=== PATIENT | male | born 1990 | race Caucasian/White ===

== ENCOUNTER 2019-10-09 02:00 | Inpatient (IN) | payer MEDICAID, SELFPAY ==
[~2019-10-09] VITALS: Ht 175.3 cm; Wt 62.8 kg
[2019-10-09] VITALS (60 sets, daily range): BP systolic 88–127; BP diastolic 52–80
[2019-10-09] MEDS ORDERED: SODIUM CHLORIDE 0.9% 1,000 ML IV ONE ×2 (02:13→05:15)
[2019-10-09] MEDS ORDERED: PHENYLEPHRINE 20 MG in DEXT 5% WATER 498 ML IV PRN ×2 (02:30→02:45)
[2019-10-09 02:37] LABS: HEMATOCRIT. 40.5 % (42.0-52.0); HEMOGLOBIN. 13.5 g/dL (14.0-18.0); MEAN CORPUSCULAR HEMOGLOBIN 30.4 pg (28.0-32.0); MEAN CORPUSCULAR VOLUME 91.1 fL (80.0-94.0); MEAN PLATELET VOLUME 9.4 fl (7.4-10.4); PLATELET 330 x1000/uL (130-400); RED BLOOD CELL COUNT 4.45 mill/uL (4.7-6.1); RED CELL DISTRIBUTION WIDTH 13.7 % (11.6-14.6)
[2019-10-09 02:45] LABS: CHLORIDE 106 mEq/L (98-107)
[2019-10-09 02:50] LABS: ETHANOL BLOOD 30 mg/dL
[2019-10-09 02:54] LABS: CREATINE KINASE 357 IU/L (39-308)
[2019-10-09] MEDS ORDERED: MIDAZOLAM HCL 50 MG in DEXTROSE 5% WATER 40 ML IV ONE (03:00)
[2019-10-09] MEDS ORDERED: SODIUM CHLORIDE 0.9% 1000ML BAG (SEPSIS BOLUS) IV ONE (03:15)
[2019-10-09] MEDS ORDERED: ACETAMINOPHEN 650MG SUPP PR ONE (03:15)
[2019-10-09] MEDS ORDERED: MIDAZOLAM HCL 100 MG in DEXT 5% WATER 80 ML IV PRN ×2 (03:30→09:00)
[2019-10-09] MEDS ORDERED: ACYCLOVIR INJ 500 MG in DEXT 5% WATER 100 ML IV SCH (05:00)
[2019-10-09] MEDS ORDERED: CEFTRIAXONE 2 G PREMIX 50 ML IV ONE (05:00)
[2019-10-09] MEDS ORDERED: VANCOMYCIN 1 G PREMIX 200 ML IV SCH (05:00)
[2019-10-09] MEDS ORDERED: MIDAZOLAM HCL 2 MG/2 ML VIAL IV ONE (05:15)
[2019-10-09] MEDS ORDERED: KETOROLAC 15MG/ML VIAL IV ONE (05:15)
[2019-10-09] MEDS ORDERED: PROPOFOL 10MG/ML 100ML 100 ML IV SCH (05:30)
[2019-10-09 05:39] LABS: ATYPICAL LYMPHOCYTES 1; PLATELET ESTIMATE NORMAL
[2019-10-09] MEDS ORDERED: LEVETIRACETAM 500MG PREMIX 100 ML IV ONE ×2 (05:45)
[2019-10-09 06:30] LABS: GLUCOSE CSF 60 mg/dL (41-75)
[2019-10-09] MEDS ORDERED: PHENYLEPHRINE 80 MG in DEXT 5% WATER 492 ML IV PRN ×2 (09:00→09:15)
[2019-10-09] MEDS ORDERED: ONDANSETRON HCL 4MG/2ML INJ IV PRN (09:15)
[2019-10-09] MEDS ORDERED: PIPERACILLIN/TAZ 3.375G PREMIX 50 ML IV SCH (09:15)
[2019-10-09] MEDS: MIDAZOLAM HCL 100 MG in DEXT 5% WATER 80 ML IV PRN ×2 (09:24→18:08)
[2019-10-09] MEDS: PROPOFOL 10MG/ML 100ML 100 ML IV PRN ×2 (09:28→14:01)
[2019-10-09 09:34] LABS: PHOSPHORUS 3.1 mg/dL (2.5-4.9)
[2019-10-09] MEDS ORDERED: ENOXAPARIN 40MG/0.4ML SYR SUBCUT SCH (10:00)
[2019-10-09] MEDS ORDERED: SODIUM CHLORIDE 0.9% 1,000 ML IV SCH (10:00)
[2019-10-09] MEDS ORDERED: LORAZEPAM 2MG/ML CPJ IV PRN (10:15)
[2019-10-09 10:42] LABS: BG BASE EXCESS -9.7 mmol/L (-2.0-2.0); BG CARBOXYHEMOGLOBIN 0.3 % (0.5-1.5); BG DEOXYHEMOGLOBIN 0.8 % (0.0-5.0); BG HCO3 ACT 13.8 mmol/L (22.0-26.0); BG METHEMOGLOBIN 0.3 % (0.0-1.5); BG OXYGEN SATURATION 99.2 % (92.0-98.5); BG OXYHEMOGLOBIN 98.6 % (94.0-97.0); BG PCO2 24.8 mmHg (35.0-45.0); BG PH 7.363 (7.350-7.450); BG PO2 164.6 mmHg (75.0-100.0); BG SAMPLE SITE RIGHT BRACHIAL; BG TIDAL VOLUME(mL) 500 mL; BG TOTAL HEMOGLOBIN 14.2 g/dL (12.0-18.0); BG VENT MODE VENT - A/C; BG VENT RATE 16 set
[2019-10-09] MEDS: ACETAMINOPHEN 325MG TABLET PO PRN (12:47)
[2019-10-09] MEDS: LEVETIRACETAM 500MG PREMIX 100 ML IV SCH ×2 (12:49→22:15)
[2019-10-09] MEDS: PIPERACILLIN/TAZOBACTAM 3.375 G in DEXT 5% WATER 100 ML IV SCH ×2 (12:49→17:20)
[2019-10-09] MEDS ORDERED: MVI, ADULT NO.1 10 ML, FOLIC ACID 1 MG, THIAMINE HCL 100 MG in SODIUM CHLORIDE 0.9% 1,0... IV SCH ×4 (13:15)
[2019-10-09 13:39] LABS: CLARITY URINE TURBID (CLEAR); KETONES URINE 1+ (NEGATIVE); LEUKOCYTE ESTERASE URINE 2+ (NEGATIVE); NITRITE URINE POSITIVE (NEGATIVE); OCCULT BLOOD URINE 3+ (NEGATIVE); PH URINE 5.5 (4.5-8.0); PROTEIN URINE 3+ (NEGATIVE); SPECIFIC GRAVITY URINE 1.023 (1.005-1.030)
[2019-10-09 13:42] LABS: COLOR URINE BROWN (YELLOW)
[2019-10-09] MEDS ORDERED: PANTOPRAZOLE SODIUM 40 MG/VIAL IV SCH (14:00)
[2019-10-09 14:02] LABS: *BARBITURATES SCREEN URINE NEGATIVE (NEGATIVE); *BENZODIAZEPINES SCREEN URINE PRESUMTIVE POSITIVE (NEGATIVE); *COCAINE SCREEN URINE NEGATIVE (NEGATIVE); METHADONE URINE SCREEN NEGATIVE (NEGATIVE)
[2019-10-09 14:03] LABS: *AMPHETAMINES SCREEN URINE PRESUMTIVE POSITIVE (NEGATIVE); CANNABINOID URINE SCREEN NEGATIVE (NEGATIVE); OPIATES URINE SCREEN NEGATIVE (NEGATIVE); PHENCYCLIDINE URINE SCREEN NEGATIVE (NEGATIVE)
[2019-10-09] MEDS: FENTANYL CITRATE/PF 1,000 MCG in SODIUM CHLORIDE 0.9% 80 ML IV PRN (14:03)
[2019-10-09] MEDS: LACTULOSE 20G/30ML UDC PO SCH ×2 (14:43→22:16)
[2019-10-09] MEDS: FOLIC ACID 1 MG, THIAMINE HCL 100 MG, MVI, ADULT NO.1 10 ML in DEXTROSE 5% WATER 1,000 ML IV SCH ×4 (15:49)
[2019-10-09 16:47] LABS: INR 1.8; PROTHROMBIN TIME 18.2 sec (9.6-11.0)
[2019-10-09] MEDS: PANTOPRAZOLE SODIUM 40 MG/VIAL IV SCH (17:20)
[2019-10-09 17:22] LABS: HEPATITIS B SURFACE ANTIGEN NEGATIVE
[2019-10-09 17:36] LABS: CREATINE KINASE MB FRACTION 339.6 ng/mL (0.5-3.6)
[2019-10-09 17:52] LABS: HEPATITIS A AB IGM NEGATIVE (NEGATIVE)
[2019-10-09] MEDS ORDERED: VANCOMYCIN 1500MG in DEXTROSE 5% WATER 250ML IV SCH (18:00)
[2019-10-09] MEDS: PHENYLEPHRINE 80 MG in DEXT 5% WATER 492 ML IV PRN (23:07)
[2019-10-09 23:39] LABS: CREATINE KINASE MB FRACTION 275.9 ng/mL (0.5-3.6)
[2019-10-10] VITALS (94 sets, daily range): BP systolic 87–110; BP diastolic 45–63
[2019-10-10] MEDS: PIPERACILLIN/TAZOBACTAM 3.375 G in DEXT 5% WATER 100 ML IV SCH ×2 (00:52→06:19)
[2019-10-10] MEDS: FENTANYL CITRATE/PF 1,000 MCG in SODIUM CHLORIDE 0.9% 80 ML IV PRN (05:37)
[2019-10-10 05:46] LABS: HEMATOCRIT. 41.2 % (42.0-52.0); HEMOGLOBIN. 13.3 g/dL (14.0-18.0); MEAN CORPUSCULAR HEMOGLOBIN 30.2 pg (28.0-32.0); MEAN CORPUSCULAR VOLUME 93.5 fL (80.0-94.0); MEAN PLATELET VOLUME 10.8 fl (7.4-10.4); PLATELET 82 x1000/uL (130-400); RED CELL DISTRIBUTION WIDTH 14.6 % (11.6-14.6)
[2019-10-10 06:03] LABS: CHLORIDE 108 mEq/L (98-107)
[2019-10-10 06:11] LABS: HDL CHOLESTEROL 62 mg/dL (40-59)
[2019-10-10 06:13] LABS: LDL CHOLESTEROL 97 mg/dL (5-100)
[2019-10-10] MEDS: LACTULOSE 20G/30ML UDC PO SCH ×3 (06:19→21:36)
[2019-10-10 08:00] LABS: PLATELET ESTIMATE SLIGHTLY DECREASED
[2019-10-10 08:06] LABS: BG BASE EXCESS 2.4 mmol/L (-2.0-2.0); BG CARBOXYHEMOGLOBIN 0.3 % (0.5-1.5); BG DEOXYHEMOGLOBIN 4.2 % (0.0-5.0); BG FRACTION INSPIRED OXYGEN 50; BG HCO3 ACT 25.2 mmol/L (22.0-26.0); BG METHEMOGLOBIN 0.9 % (0.0-1.5); BG OXYGEN SATURATION 95.7 % (92.0-98.5); BG OXYHEMOGLOBIN 94.6 % (94.0-97.0); BG PCO2 33.5 mmHg (35.0-45.0); BG PH 7.494 (7.350-7.450); BG PO2 77.9 mmHg (75.0-100.0); BG SAMPLE SITE RIGHT BRACHIAL; BG TIDAL VOLUME(mL) 500 mL; BG TOTAL HEMOGLOBIN 13.3 g/dL (12.0-18.0); BG VENT MODE VENT - A/C; BG VENT RATE 16 set
[2019-10-10] MEDS: LEVETIRACETAM 500MG PREMIX 100 ML IV SCH ×2 (09:34→20:41)
[2019-10-10] MEDS: RIFAXIMIN 550 MG TABLET PO SCH ×2 (09:35→20:50)
[2019-10-10] MEDS: PANTOPRAZOLE SODIUM 40 MG/VIAL IV SCH ×2 (09:35→16:45)
[2019-10-10] MEDS: ENOXAPARIN 30MG/0.3ML SYR SUBCUT SCH (11:13)
[2019-10-10] MEDS: CEFEPIME 1,000 MG in DEXTROSE 5% WATER 50 ML IV SCH ×2 (11:26→22:38)
[2019-10-10] MEDS: PHENYLEPHRINE 80 MG in DEXT 5% WATER 492 ML IV PRN ×2 (11:26→17:43)
[2019-10-10] MEDS ORDERED: PIPERACILLIN/TAZOBACTAM 2.25 G in DEXTROSE 5% WATER 50 ML IV SCH (14:00)
[2019-10-10] MEDS: FOLIC ACID 1 MG, THIAMINE HCL 100 MG, MVI, ADULT NO.1 10 ML in DEXTROSE 5% WATER 1,000 ML IV SCH ×4 (15:00)
[2019-10-10] MEDS: METRONIDAZOLE 500 MG PREMIX 100 ML IV SCH ×2 (16:44→21:36)
[2019-10-11] VITALS (81 sets, daily range): BP systolic 84–140; BP diastolic 38–84
[2019-10-11] MEDS: PHENYLEPHRINE 80 MG in DEXT 5% WATER 492 ML IV PRN ×3 (00:26→17:29)
[2019-10-11 04:07] LABS: HIV SCREEN 4G Non Reactive (Non Reactive)
[2019-10-11] MEDS: METRONIDAZOLE 500 MG PREMIX 100 ML IV SCH ×3 (05:14→21:16)
[2019-10-11] MEDS: LACTULOSE 20G/30ML UDC PO SCH ×3 (05:14→21:15)
[2019-10-11 05:48] LABS: HEMOGLOBIN. 13.2 g/dL (14.0-18.0); MEAN CORPUSCULAR HEMOGLOBIN 30.1 pg (28.0-32.0); MEAN CORPUSCULAR VOLUME 93.7 fL (80.0-94.0); MEAN PLATELET VOLUME 11.6 fl (7.4-10.4); RED BLOOD CELL COUNT 4.38 mill/uL (4.7-6.1); RED CELL DISTRIBUTION WIDTH 14.8 % (11.6-14.6)
[2019-10-11 06:17] LABS: PLATELET 49 x1000/uL (130-400)
[2019-10-11 08:12] LABS: BG BASE EXCESS -15.2 mmol/L (-2.0-2.0); BG CARBOXYHEMOGLOBIN 0.3 % (0.5-1.5); BG DEOXYHEMOGLOBIN 2.6 % (0.0-5.0); BG FRACTION INSPIRED OXYGEN 50; BG HCO3 ACT 12.3 mmol/L (22.0-26.0); BG METHEMOGLOBIN 0.3 % (0.0-1.5); BG OXYGEN SATURATION 97.4 % (92.0-98.5); BG OXYHEMOGLOBIN 96.8 % (94.0-97.0); BG PCO2 34.6 mmHg (35.0-45.0); BG PH 7.168 (7.350-7.450); BG PO2 103.8 mmHg (75.0-100.0); BG SAMPLE SITE RIGHT RADIAL; BG TIDAL VOLUME(mL) 500 mL; BG TOTAL HEMOGLOBIN 13.1 g/dL (12.0-18.0); BG VENT MODE VENT - A/C; BG VENT RATE 12 set
[2019-10-11 08:33] LABS: PLATELET ESTIMATE MARKEDLY DECREASED
[2019-10-11] MEDS: FOLIC ACID 1 MG, THIAMINE HCL 100 MG, MVI, ADULT NO.1 10 ML in DEXTROSE 5% WATER 1,000 ML IV SCH ×4 (09:02)
[2019-10-11] MEDS: ENOXAPARIN 30MG/0.3ML SYR SUBCUT SCH (09:46)
[2019-10-11 10:28] LABS: PROTHROMBIN TIME 29.8 sec (9.6-11.0)
[2019-10-11] MEDS ORDERED: PHYTONADIONE 10MG/ML AMP SUBCUT NR (12:00)
[2019-10-11] MEDS: LEVETIRACETAM 500MG PREMIX 100 ML IV SCH ×2 (13:08→21:16)
[2019-10-11] MEDS: CEFEPIME 1,000 MG in DEXTROSE 5% WATER 50 ML IV SCH ×2 (13:08→23:33)
[2019-10-11] MEDS: RIFAXIMIN 550 MG TABLET PO SCH ×2 (13:09→21:15)
[2019-10-11] MEDS: PANTOPRAZOLE SODIUM 40 MG/VIAL IV SCH ×2 (13:09→16:27)
[2019-10-11] MEDS: ALBUMIN HUMAN 25GM/100ML (25%) IV SCH ×2 (13:56→21:15)
[2019-10-11] MEDS ORDERED: VANCOMYCIN 1 G PREMIX 200 ML IV SCH (17:00)
[2019-10-11] MEDS: FENTANYL CITRATE/PF 1,000 MCG in SODIUM CHLORIDE 0.9% 80 ML IV PRN (23:33)
[2019-10-12] VITALS (74 sets, daily range): BP systolic 105–146; BP diastolic 50–74
[2019-10-12] MEDS: FOLIC ACID 1 MG, THIAMINE HCL 100 MG, MVI, ADULT NO.1 10 ML in DEXTROSE 5% WATER 1,000 ML IV SCH ×4 (02:00)
[2019-10-12 05:34] LABS: HEMATOCRIT. 31.3 % (42.0-52.0); HEMOGLOBIN. 10.5 g/dL (14.0-18.0); MEAN CORPUSCULAR HEMOGLOBIN 30.8 pg (28.0-32.0); MEAN CORPUSCULAR VOLUME 91.6 fL (80.0-94.0); MEAN PLATELET VOLUME 10.4 fl (7.4-10.4); RED BLOOD CELL COUNT 3.42 mill/uL (4.7-6.1); RED CELL DISTRIBUTION WIDTH 14.4 % (11.6-14.6)
[2019-10-12 05:41] LABS: INR 2.3; PARTIAL THROMBOPLASTIN TIME 50.9 sec (23.4-31.0); PROTHROMBIN TIME 23.4 sec (9.6-11.0)
[2019-10-12] MEDS: LACTULOSE 20G/30ML UDC PO SCH ×3 (05:55→22:58)
[2019-10-12] MEDS: METRONIDAZOLE 500 MG PREMIX 100 ML IV SCH ×3 (05:55→21:10)
[2019-10-12 06:17] LABS: PLATELET 46 x1000/uL (130-400)
[2019-10-12 08:48] LABS: BG CARBOXYHEMOGLOBIN 0.2 % (0.5-1.5); BG DEOXYHEMOGLOBIN 1.9 % (0.0-5.0); BG FRACTION INSPIRED OXYGEN 50; BG HCO3 ACT 17.8 mmol/L (22.0-26.0); BG METHEMOGLOBIN 0.4 % (0.0-1.5); BG OXYGEN SATURATION 98.1 % (92.0-98.5); BG OXYHEMOGLOBIN 97.5 % (94.0-97.0); BG PCO2 37.5 mmHg (35.0-45.0); BG PH 7.295 (7.350-7.450); BG PO2 122.3 mmHg (75.0-100.0); BG SAMPLE SITE RIGHT BRACHIAL; BG TIDAL VOLUME(mL) 500 mL; BG TOTAL HEMOGLOBIN 8.5 g/dL (12.0-18.0); BG VENT MODE VENT - A/C; BG VENT RATE 18 set
[2019-10-12] MEDS: RIFAXIMIN 550 MG TABLET PO SCH ×2 (10:06→21:10)
[2019-10-12] MEDS: PANTOPRAZOLE SODIUM 40 MG/VIAL IV SCH ×2 (10:06→16:16)
[2019-10-12 10:07] LABS: PLATELET ESTIMATE DECREASED
[2019-10-12] MEDS: LEVETIRACETAM 500MG PREMIX 100 ML IV SCH ×2 (10:07→21:10)
[2019-10-12] MEDS: CEFEPIME 1,000 MG in DEXTROSE 5% WATER 50 ML IV SCH (11:40)
[2019-10-12] MEDS: PHYTONADIONE 10MG/ML AMP SUBCUT SCH (18:00)
[2019-10-13] VITALS (52 sets, daily range): BP systolic 125–171; BP diastolic 61–95
[2019-10-13] MEDS: FOLIC ACID 1 MG, THIAMINE HCL 100 MG, MVI, ADULT NO.1 10 ML in DEXTROSE 5% WATER 1,000 ML IV SCH ×4 (02:38)
[2019-10-13] MEDS: METRONIDAZOLE 500 MG PREMIX 100 ML IV SCH ×3 (05:16→21:23)
[2019-10-13] MEDS: LACTULOSE 20G/30ML UDC PO SCH ×3 (05:16→21:23)
[2019-10-13] MEDS: FENTANYL CITRATE/PF 1,000 MCG in SODIUM CHLORIDE 0.9% 80 ML IV PRN (06:08)
[2019-10-13 08:01] LABS: HEMATOCRIT. 34.2 % (42.0-52.0); HEMOGLOBIN. 11.5 g/dL (14.0-18.0); MEAN CORPUSCULAR HEMOGLOBIN 30.1 pg (28.0-32.0); MEAN CORPUSCULAR VOLUME 89.7 fL (80.0-94.0); MEAN PLATELET VOLUME 9.4 fl (7.4-10.4); PLATELET 91 x1000/uL (130-400); RED BLOOD CELL COUNT 3.82 mill/uL (4.7-6.1); RED CELL DISTRIBUTION WIDTH 14.4 % (11.6-14.6)
[2019-10-13 08:02] LABS: CHLORIDE 117 mEq/L (98-107)
[2019-10-13 08:04] LABS: INR 1.4; PROTHROMBIN TIME 14.8 sec (9.6-11.0)
[2019-10-13 08:22] LABS: CREATINE KINASE 3474 IU/L (39-308)
[2019-10-13 08:58] LABS: PLATELET ESTIMATE DECREASED
[2019-10-13] MEDS: PHYTONADIONE 10MG/ML AMP SUBCUT SCH (09:02)
[2019-10-13] MEDS: RIFAXIMIN 550 MG TABLET PO SCH ×2 (09:02→21:23)
[2019-10-13] MEDS: PANTOPRAZOLE SODIUM 40 MG/VIAL IV SCH ×2 (09:02→17:08)
[2019-10-13] MEDS: CEFEPIME 1,000 MG in DEXTROSE 5% WATER 50 ML IV SCH (09:02)
[2019-10-13 09:11] LABS: BG BASE EXCESS -3.5 mmol/L (-2.0-2.0); BG CARBOXYHEMOGLOBIN 0.8 % (0.5-1.5); BG DEOXYHEMOGLOBIN 1.5 % (0.0-5.0); BG FRACTION INSPIRED OXYGEN 40; BG HCO3 ACT 21.4 mmol/L (22.0-26.0); BG METHEMOGLOBIN 0.8 % (0.0-1.5); BG OXYGEN SATURATION 98.5 % (92.0-98.5); BG OXYHEMOGLOBIN 96.9 % (94.0-97.0); BG PCO2 37.8 mmHg (35.0-45.0); BG PH 7.371 (7.350-7.450); BG PO2 147.5 mmHg (75.0-100.0); BG SAMPLE SITE LEFT RADIAL; BG TIDAL VOLUME(mL) 500 mL; BG TOTAL HEMOGLOBIN 6.5 g/dL (12.0-18.0); BG VENT MODE VENT - A/C; BG VENT RATE 20 set
[2019-10-13] MEDS: LEVETIRACETAM 500MG PREMIX 100 ML IV SCH ×2 (10:29→21:23)
[2019-10-13] MEDS ORDERED: VANCOMYCIN 750 MG PREMIX 150 ML IV SCH (12:00)
[2019-10-13] MEDS: ACETAMINOPHEN 325MG TABLET PO PRN (14:30)
[2019-10-13] MEDS: CLONIDINE 0.1MG TABLET PO PRN (14:32)
[2019-10-13] MEDS ORDERED: HYDROMORPHONE HCL/PF 2MG/ML CPJ IV PRN (15:15)
[2019-10-13] MEDS ORDERED: METOPROLOL TARTRATE 5MG/5ML VIAL IV NR (15:45)
[2019-10-13] MEDS: MORPHINE SULFATE 2 MG/ML CPJ (NOT FOR IM USE) IV PRN (15:54)
[2019-10-13 17:10] LABS: *HSV 1 DNA PCR Negative (Negative); *HSV 2 DNA PCR Negative (Negative)
[2019-10-14] VITALS (47 sets, daily range): BP systolic 133–192; BP diastolic 72–110
[2019-10-14] MEDS: LACTULOSE 20G/30ML UDC PO SCH ×3 (05:44→22:50)
[2019-10-14] MEDS: METRONIDAZOLE 500 MG PREMIX 100 ML IV SCH ×3 (05:45→21:57)
[2019-10-14 06:41] LABS: HEMOGLOBIN. 12.3 g/dL (14.0-18.0); MEAN CORPUSCULAR HEMOGLOBIN 29.8 pg (28.0-32.0); MEAN CORPUSCULAR VOLUME 89.7 fL (80.0-94.0); MEAN PLATELET VOLUME 9.1 fl (7.4-10.4); PLATELET 107 x1000/uL (130-400); RED BLOOD CELL COUNT 4.12 mill/uL (4.7-6.1); RED CELL DISTRIBUTION WIDTH 14.9 % (11.6-14.6)
[2019-10-14 06:46] LABS: INR 1.3
[2019-10-14 08:20] LABS: PLATELET ESTIMATE DECREASED
[2019-10-14] MEDS: CEFEPIME 1,000 MG in DEXTROSE 5% WATER 50 ML IV SCH (09:18)
[2019-10-14] MEDS: RIFAXIMIN 550 MG TABLET PO SCH ×2 (09:18→21:16)
[2019-10-14] MEDS: LEVETIRACETAM 500MG PREMIX 100 ML IV SCH ×2 (09:18→21:16)
[2019-10-14] MEDS: PHYTONADIONE 10MG/ML AMP SUBCUT SCH (09:18)
[2019-10-14] MEDS: PANTOPRAZOLE SODIUM 40 MG/VIAL IV SCH ×2 (09:19→17:50)
[2019-10-14] MEDS ORDERED: THIAMINE HCL 100 MG in SODIUM CHLORIDE 0.9% 49 ML IV NR (11:00)
[2019-10-14] MEDS: METOCLOPRAMIDE HCL 10MG/2ML VIAL IV SCH ×3 (11:29→23:38)
[2019-10-14 12:35] LABS: FOLIC ACID (FOLATE) SERUM > 20.00 ng/mL (>5.38); VITAMIN B12 SERUM >2000 pg/mL pg/mL (211-911)
[2019-10-14] MEDS: MORPHINE SULFATE 2 MG/ML CPJ (NOT FOR IM USE) IV PRN (15:04)
[2019-10-14] MEDS: METOPROLOL TARTRATE 5MG/5ML VIAL IV PRN ×2 (15:52→18:50)
[2019-10-14] MEDS: ACETAMINOPHEN 325MG TABLET PO PRN (17:52)
[2019-10-14 19:00] LABS: CLARITY URINE CLOUDY (CLEAR); COLOR URINE DARK YELLOW (YELLOW); KETONES URINE NEGATIVE (NEGATIVE); LEUKOCYTE ESTERASE URINE 1+ (NEGATIVE); NITRITE URINE POSITIVE (NEGATIVE); OCCULT BLOOD URINE 2+ (NEGATIVE); PROTEIN URINE 3+ (NEGATIVE); SPECIFIC GRAVITY URINE 1.035 (1.005-1.030); UROBILINOGEN URINE 0.2 E.U./dL (0.2-1.0)
[2019-10-14] MEDS: FENTANYL CITRATE/PF 1,000 MCG in SODIUM CHLORIDE 0.9% 80 ML IV PRN (23:42)
[2019-10-15] VITALS (43 sets, daily range): BP systolic 136–187; BP diastolic 76–127
[2019-10-15] MEDS: METRONIDAZOLE 500 MG PREMIX 100 ML IV SCH ×3 (04:54→21:10)
[2019-10-15] MEDS: METOCLOPRAMIDE HCL 10MG/2ML VIAL IV SCH ×3 (04:55→17:11)
[2019-10-15] MEDS: CLONIDINE 0.1MG TABLET PO PRN ×2 (04:55→12:28)
[2019-10-15] MEDS: LACTULOSE 20G/30ML UDC PO SCH ×3 (04:56→21:10)
[2019-10-15 06:08] LABS: HEMATOCRIT. 33.8 % (42.0-52.0); HEMOGLOBIN. 11.2 g/dL (14.0-18.0); MEAN CORPUSCULAR HEMOGLOBIN 30.1 pg (28.0-32.0); MEAN CORPUSCULAR VOLUME 90.4 fL (80.0-94.0); MEAN PLATELET VOLUME 9.8 fl (7.4-10.4); PLATELET 126 x1000/uL (130-400); RED BLOOD CELL COUNT 3.73 mill/uL (4.7-6.1); RED CELL DISTRIBUTION WIDTH 15.1 % (11.6-14.6)
[2019-10-15 06:47] LABS: INR 1.3; PROTHROMBIN TIME 13.5 sec (9.6-11.0)
[2019-10-15] MEDS: PANTOPRAZOLE SODIUM 40 MG/VIAL IV SCH ×2 (08:08→17:11)
[2019-10-15] MEDS: CEFEPIME 1,000 MG in DEXTROSE 5% WATER 50 ML IV SCH (08:08)
[2019-10-15] MEDS: RIFAXIMIN 550 MG TABLET PO SCH (08:09)
[2019-10-15] MEDS: LEVETIRACETAM 500MG PREMIX 100 ML IV SCH ×2 (09:17→21:10)
[2019-10-15] MEDS ORDERED: DEXTROSE 10% WATER 500 ML IV SCH (09:30)
[2019-10-15 09:50] LABS: BG BASE EXCESS -9.1 mmol/L (-2.0-2.0); BG CARBOXYHEMOGLOBIN 0.2 % (0.5-1.5); BG DEOXYHEMOGLOBIN 2.3 % (0.0-5.0); BG FRACTION INSPIRED OXYGEN 40; BG HCO3 ACT 16.8 mmol/L (22.0-26.0); BG METHEMOGLOBIN 0.4 % (0.0-1.5); BG OXYGEN SATURATION 97.7 % (92.0-98.5); BG OXYHEMOGLOBIN 97.1 % (94.0-97.0); BG PCO2 36.1 mmHg (35.0-45.0); BG PH 7.285 (7.350-7.450); BG PO2 130.7 mmHg (75.0-100.0); BG SAMPLE SITE RIGHT RADIAL; BG TIDAL VOLUME(mL) 500 mL; BG TOTAL HEMOGLOBIN 11.2 g/dL (12.0-18.0); BG VENT MODE VENT - A/C; BG VENT RATE 20 set
[2019-10-15] MEDS: DEXT 10% WATER 1,000 ML IV SCH (10:35)
[2019-10-15 10:42] LABS: PLATELET ESTIMATE SLIGHTLY DECREASED
[2019-10-15] MEDS: FENTANYL CITRATE/PF 1,000 MCG in SODIUM CHLORIDE 0.9% 80 ML IV PRN ×2 (12:38→17:38)
[2019-10-15] MEDS ORDERED: MAGNESIUM 4 G PREMIX 100 ML IV NR (16:30)
[2019-10-16] VITALS (47 sets, daily range): BP systolic 130–178; BP diastolic 79–116
[2019-10-16] MEDS: METOCLOPRAMIDE HCL 10MG/2ML VIAL IV SCH ×5 (01:13→23:04)
[2019-10-16] MEDS: FENTANYL CITRATE/PF 1,000 MCG in SODIUM CHLORIDE 0.9% 80 ML IV PRN ×3 (03:24→20:10)
[2019-10-16 05:36] LABS: HEMATOCRIT. 30.3 % (42.0-52.0); HEMOGLOBIN. 10.4 g/dL (14.0-18.0); MEAN CORPUSCULAR HEMOGLOBIN 30.2 pg (28.0-32.0); MEAN PLATELET VOLUME 10.3 fl (7.4-10.4); PLATELET 162 x1000/uL (130-400); RED BLOOD CELL COUNT 3.44 mill/uL (4.7-6.1); RED CELL DISTRIBUTION WIDTH 14.6 % (11.6-14.6)
[2019-10-16 05:57] LABS: PHOSPHORUS 2.1 mg/dL (2.5-4.9)
[2019-10-16 06:13] LABS: INR 1.2; PROTHROMBIN TIME 12.3 sec (9.6-11.0)
[2019-10-16] MEDS: LACTULOSE 20G/30ML UDC PO SCH ×3 (06:22→22:40)
[2019-10-16] MEDS: METRONIDAZOLE 500 MG PREMIX 100 ML IV SCH ×3 (06:22→22:40)
[2019-10-16] MEDS: CEFEPIME 1,000 MG in DEXTROSE 5% WATER 50 ML IV SCH (08:44)
[2019-10-16] MEDS: PANTOPRAZOLE SODIUM 40 MG/VIAL IV SCH ×2 (08:45→17:38)
[2019-10-16 08:49] LABS: BG BASE EXCESS -1.4 mmol/L (-2.0-2.0); BG CARBOXYHEMOGLOBIN 0.3 % (0.5-1.5); BG DEOXYHEMOGLOBIN 1.9 % (0.0-5.0); BG FRACTION INSPIRED OXYGEN 40; BG HCO3 ACT 22.4 mmol/L (22.0-26.0); BG METHEMOGLOBIN 0.3 % (0.0-1.5); BG OXYGEN SATURATION 98.1 % (92.0-98.5); BG OXYHEMOGLOBIN 97.5 % (94.0-97.0); BG PCO2 34.3 mmHg (35.0-45.0); BG PH 7.433 (7.350-7.450); BG PO2 129.3 mmHg (75.0-100.0); BG SAMPLE SITE RIGHT BRACHIAL; BG TIDAL VOLUME(mL) 500 mL; BG TOTAL HEMOGLOBIN 10.8 g/dL (12.0-18.0); BG VENT MODE VENT - A/C; BG VENT RATE 20 set
[2019-10-16] MEDS: DEXT 10% WATER 1,000 ML IV SCH (09:45)
[2019-10-16] MEDS: LEVETIRACETAM 500MG PREMIX 100 ML IV SCH ×2 (09:48→21:05)
[2019-10-16] MEDS ORDERED: POTASSIUM PHOS,M-BASIC-D-BASIC 15 MMOL in DEXT 5% WATER 245 ML IV NR (10:00)
[2019-10-16 13:01] LABS: PLATELET ESTIMATE NORMAL
[2019-10-16 18:54] LABS: HEMATOCRIT 29.7 % (42.0-52.0); HEMOGLOBIN 10.2 g/dL (14.0-18.0); MEAN CORPUSCULAR HEMOGLOBIN 30.4 pg (28.0-32.0); MEAN CORPUSCULAR VOLUME 88.4 fL (80.0-94.0); PLATELET 183 x1000/uL (130-400); RED BLOOD CELL COUNT 3.35 mill/uL (4.7-6.1)
[2019-10-17] VITALS (44 sets, daily range): BP systolic 126–179; BP diastolic 77–115
[2019-10-17] MEDS: CLONIDINE 0.1MG TABLET PO PRN ×2 (01:13→18:50)
[2019-10-17] MEDS: FENTANYL CITRATE/PF 1,000 MCG in SODIUM CHLORIDE 0.9% 80 ML IV PRN ×2 (01:54→06:41)
[2019-10-17] MEDS: LACTULOSE 20G/30ML UDC PO SCH ×3 (03:09→22:22)
[2019-10-17] MEDS: METOCLOPRAMIDE HCL 10MG/2ML VIAL IV SCH ×3 (05:30→17:30)
[2019-10-17] MEDS: METRONIDAZOLE 500 MG PREMIX 100 ML IV SCH ×3 (05:30→22:22)
[2019-10-17 06:16] LABS: HEMATOCRIT. 28.5 % (42.0-52.0); HEMOGLOBIN. 9.7 g/dL (14.0-18.0); MEAN CORPUSCULAR HEMOGLOBIN 30.1 pg (28.0-32.0); MEAN CORPUSCULAR VOLUME 88.6 fL (80.0-94.0); MEAN PLATELET VOLUME 10.2 fl (7.4-10.4); PLATELET 238 x1000/uL (130-400); RED BLOOD CELL COUNT 3.22 mill/uL (4.7-6.1); RED CELL DISTRIBUTION WIDTH 14.9 % (11.6-14.6)
[2019-10-17 06:38] LABS: PHOSPHORUS 5.8 mg/dL (2.5-4.9)
[2019-10-17] MEDS ORDERED: POTASSIUM CHLORIDE 20MEQ/PACKET PO SCH (07:15)
[2019-10-17 07:25] LABS: PLATELET ESTIMATE NORMAL
[2019-10-17] MEDS: CEFEPIME 1,000 MG in DEXTROSE 5% WATER 50 ML IV SCH (08:28)
[2019-10-17] MEDS: LEVETIRACETAM 500MG PREMIX 100 ML IV SCH ×2 (08:28→20:41)
[2019-10-17] MEDS: PANTOPRAZOLE SODIUM 40 MG/VIAL IV SCH ×2 (08:28→17:30)
[2019-10-17] MEDS ORDERED: KCL 20MEQ/100ML PREMIX 100 ML IV SCH (10:00)
[2019-10-17] MEDS: DEXT 10% WATER 1,000 ML IV SCH (10:10)
[2019-10-17 12:25] LABS: BG BASE EXCESS 0.2 mmol/L (-2.0-2.0); BG DEOXYHEMOGLOBIN 2.7 % (0.0-5.0); BG FRACTION INSPIRED OXYGEN 30; BG HCO3 ACT 23.9 mmol/L (22.0-26.0); BG METHEMOGLOBIN 0.3 % (0.0-1.5); BG OXYGEN SATURATION 97.3 % (92.0-98.5); BG PH 7.452 (7.350-7.450); BG PO2 100.1 mmHg (75.0-100.0); BG SAMPLE SITE RIGHT RADIAL; BG TIDAL VOLUME(mL) 500 mL; BG TOTAL HEMOGLOBIN 10.4 g/dL (12.0-18.0); BG VENT MODE VENT - A/C; BG VENT RATE 18 set
[2019-10-17] MEDS ORDERED: SODIUM CHLORIDE 0.9% 10ML VIAL ONE (14:22)
[2019-10-17] MEDS ORDERED: ROCURONIUM BROMIDE 10MG/ML VIAL 5ML IV ONE (14:22)
[2019-10-17] MEDS ORDERED: VECURONIUM BROMIDE 10 MG/VIAL IV ONE (14:22)
[2019-10-17] MEDS ORDERED: MIDAZOLAM HCL 2 MG/2 ML VIAL ONE (14:38)
[2019-10-17] MEDS: ACETAMINOPHEN 325MG TABLET PO PRN (20:41)
[2019-10-17] MEDS: LORAZEPAM 2MG/ML CPJ IV PRN (20:59)
[2019-10-18] VITALS (48 sets, daily range): BP systolic 96–175; BP diastolic 62–119
[2019-10-18] MEDS: METOCLOPRAMIDE HCL 10MG/2ML VIAL IV SCH ×4 (01:16→17:31)
[2019-10-18 06:11] LABS: BASOPHILS % 0.8 % (0.0-2.0); EOSINOPHILS % 0.5 % (0.0-5.0); HEMATOCRIT. 27.5 % (42.0-52.0); HEMOGLOBIN. 9.4 g/dL (14.0-18.0); LYMPHOCYTES % 26.1 % (20.0-50.0); MEAN CORPUSCULAR HEMOGLOBIN 30.4 pg (28.0-32.0); MEAN CORPUSCULAR VOLUME 88.7 fL (80.0-94.0); MEAN PLATELET VOLUME 9.7 fl (7.4-10.4); MONOCYTES % 7.4 % (2.0-8.0); NEUTROPHILS % 65.2 % (40.0-76.0); PLATELET 346 x1000/uL (130-400); RED CELL DISTRIBUTION WIDTH 14.7 % (11.6-14.6)
[2019-10-18] MEDS: LACTULOSE 20G/30ML UDC PO SCH ×3 (06:12→21:12)
[2019-10-18] MEDS: LEVETIRACETAM 500MG PREMIX 100 ML IV SCH ×2 (08:56→20:03)
[2019-10-18] MEDS: PANTOPRAZOLE SODIUM 40 MG/VIAL IV SCH ×2 (08:56→17:31)
[2019-10-18 09:30] LABS: BG BASE EXCESS -1.9 mmol/L (-2.0-2.0); BG CARBOXYHEMOGLOBIN 0.8 % (0.5-1.5); BG DEOXYHEMOGLOBIN 2.8 % (0.0-5.0); BG FRACTION INSPIRED OXYGEN 40; BG HCO3 ACT 22.3 mmol/L (22.0-26.0); BG METHEMOGLOBIN 0.4 % (0.0-1.5); BG OXYGEN SATURATION 97.2 % (92.0-98.5); BG PCO2 36.2 mmHg (35.0-45.0); BG PH 7.407 (7.350-7.450); BG SAMPLE SITE RIGHT RADIAL; BG TIDAL VOLUME(mL) 500 mL; BG VENT MODE VENT - A/C; BG VENT RATE 16 set
[2019-10-18] MEDS: LORAZEPAM 2MG/ML CPJ IV PRN ×3 (09:45→20:03)
[2019-10-18] MEDS: ACETAMINOPHEN 325MG TABLET PO PRN (13:40)
[2019-10-18] MEDS: MORPHINE SULFATE 2 MG/ML CPJ (NOT FOR IM USE) IV PRN (13:55)
[2019-10-18] MEDS: CLONIDINE 0.1MG TABLET PO PRN (17:40)
[2019-10-19] VITALS (42 sets, daily range): BP systolic 135–174; BP diastolic 53–139
[2019-10-19] MEDS: LORAZEPAM 2MG/ML CPJ IV PRN ×5 (00:41→19:35)
[2019-10-19] MEDS: METOCLOPRAMIDE HCL 10MG/2ML VIAL IV SCH ×5 (00:42→23:58)
[2019-10-19] MEDS: MORPHINE SULFATE 2 MG/ML CPJ (NOT FOR IM USE) IV PRN ×3 (02:45→11:09)
[2019-10-19] MEDS: LACTULOSE 20G/30ML UDC PO SCH ×3 (05:23→17:25)
[2019-10-19 05:59] LABS: BASOPHILS % 0.4 % (0.0-2.0); EOSINOPHILS % 0.4 % (0.0-5.0); HEMATOCRIT. 28.9 % (42.0-52.0); HEMOGLOBIN. 9.7 g/dL (14.0-18.0); MEAN CORPUSCULAR HEMOGLOBIN 30.1 pg (28.0-32.0); MEAN CORPUSCULAR VOLUME 89.6 fL (80.0-94.0); MEAN PLATELET VOLUME 9.4 fl (7.4-10.4); NEUTROPHILS % 78.2 % (40.0-76.0); PLATELET 466 x1000/uL (130-400); RED BLOOD CELL COUNT 3.23 mill/uL (4.7-6.1); RED CELL DISTRIBUTION WIDTH 15.2 % (11.6-14.6)
[2019-10-19] MEDS: DEXT 10% WATER 1,000 ML IV SCH ×2 (06:06→08:35)
[2019-10-19 06:11] LABS: INR 1.1; PARTIAL THROMBOPLASTIN TIME 26.8 sec (23.4-31.0); PROTHROMBIN TIME 11.4 sec (9.6-11.0)
[2019-10-19] MEDS: PANTOPRAZOLE SODIUM 40 MG/VIAL IV SCH ×2 (08:35→17:25)
[2019-10-19] MEDS: LEVETIRACETAM 500MG PREMIX 100 ML IV SCH (08:35)
[2019-10-19] MEDS: ENOXAPARIN 30MG/0.3ML SYR SUBCUT SCH (09:25)
[2019-10-19] MEDS ORDERED: CEFAZOLIN 1000MG PREMIX 50 ML IV NR (10:00)
[2019-10-19] MEDS ORDERED: MIDAZOLAM HCL 5 MG/5 ML VIAL IV PRN (11:02)
[2019-10-19] MEDS ORDERED: MIDAZOLAM HCL 5 MG/5 ML VIAL ONE (11:02)
[2019-10-19] MEDS ORDERED: FENTANYL CITRATE/PF 50MCG/ML 2ML VIAL IV PRN (11:02)
[2019-10-19] MEDS ORDERED: FENTANYL CITRATE/PF 50MCG/ML 2ML VIAL ONE (11:02)
[2019-10-19] MEDS: RACEPINEPHRINE 2.25% 0.5ML NEB VIAL HHN PRN ×2 (11:34→15:44)
[2019-10-19] MEDS: METOPROLOL TARTRATE 5MG/5ML VIAL IV PRN (17:27)
[2019-10-19] MEDS: ACETAMINOPHEN 325MG TABLET PO PRN (17:28)
[2019-10-19] MEDS: CLONIDINE 0.1MG TABLET PO PRN (17:28)
[2019-10-19] MEDS: DIPHENHYDRAMINE 50MG/ML VIAL IV PRN (19:57)
[2019-10-20] VITALS (12 sets, daily range): BP systolic 131–181; BP diastolic 68–106
[2019-10-20] MEDS: LORAZEPAM 2MG/ML CPJ IV PRN ×7 (00:17→20:34)
[2019-10-20] MEDS: DIPHENHYDRAMINE 50MG/ML VIAL IV PRN ×4 (00:28→14:28)
[2019-10-20] MEDS: MORPHINE SULFATE 2 MG/ML CPJ (NOT FOR IM USE) IV PRN ×6 (00:40→17:21)
[2019-10-20] MEDS: LEVETIRACETAM 500MG PREMIX 100 ML IV SCH ×3 (00:46→21:39)
[2019-10-20] MEDS: METOCLOPRAMIDE HCL 10MG/2ML VIAL IV SCH ×3 (05:28→17:21)
[2019-10-20 06:22] LABS: BASOPHILS % 0.3 % (0.0-2.0); EOSINOPHILS % 0.1 % (0.0-5.0); HEMATOCRIT. 27.4 % (42.0-52.0); HEMOGLOBIN. 9.3 g/dL (14.0-18.0); LYMPHOCYTES % 19.2 % (20.0-50.0); MEAN CORPUSCULAR HEMOGLOBIN 29.9 pg (28.0-32.0); MEAN CORPUSCULAR VOLUME 88.1 fL (80.0-94.0); MEAN PLATELET VOLUME 9.2 fl (7.4-10.4); MONOCYTES % 6.4 % (2.0-8.0); PLATELET 538 x1000/uL (130-400); RED BLOOD CELL COUNT 3.11 mill/uL (4.7-6.1); RED CELL DISTRIBUTION WIDTH 15.4 % (11.6-14.6)
[2019-10-20] MEDS: HALOPERIDOL LACTATE 5MG/ML VIAL IM PRN ×2 (07:23→19:03)
[2019-10-20] MEDS: LACTULOSE 20G/30ML UDC PO SCH (08:35)
[2019-10-20] MEDS: CLONIDINE 0.1MG TABLET PO PRN (08:35)
[2019-10-20] MEDS: PANTOPRAZOLE SODIUM 40 MG/VIAL IV SCH ×2 (08:35→17:19)
[2019-10-20] MEDS: DEXT 10% WATER 1,000 ML IV SCH (08:57)
[2019-10-20] MEDS ORDERED: HALOPERIDOL LACTATE 5MG/ML VIAL IM NR (09:00)
[2019-10-20] MEDS: ENOXAPARIN 30MG/0.3ML SYR SUBCUT SCH (09:08)
[2019-10-20] MEDS: RACEPINEPHRINE 2.25% 0.5ML NEB VIAL HHN PRN (09:35)
[2019-10-20] MEDS ORDERED: HALOPERIDOL LACTATE 5MG/ML VIAL IM ONE (10:30)
[2019-10-20] MEDS: HALOPERIDOL LACTATE 5MG/ML VIAL IM NR ×2 (11:28→13:25)
[2019-10-20] MEDS: RISPERIDONE 1MG TABLET PO SCH ×2 (11:44→21:39)
[2019-10-20] MEDS: CEFEPIME 1,000 MG in DEXTROSE 5% WATER 50 ML IV SCH (19:03)
[2019-10-20] MEDS ORDERED: VANCOMYCIN 1250MG in DEXTROSE 5% WATER 250ML IV NR (19:30)
[2019-10-20] MEDS ORDERED: METRONIDAZOLE 500 MG PREMIX 100 ML IV SCH (20:00)
[2019-10-20] MEDS: METRONIDAZOLE 500 MG PREMIX 100 ML IV SCH (21:39)
[2019-10-20] MEDS: RIFAXIMIN 550 MG TABLET PO SCH (21:39)
[2019-10-21] VITALS (12 sets, daily range): BP systolic 122–163; BP diastolic 80–122
[2019-10-21] MEDS: METOCLOPRAMIDE HCL 10MG/2ML VIAL IV SCH ×5 (00:08→23:20)
[2019-10-21] MEDS: LORAZEPAM 2MG/ML CPJ IV PRN ×8 (00:08→23:42)
[2019-10-21] MEDS: MORPHINE SULFATE 2 MG/ML CPJ (NOT FOR IM USE) IV PRN ×6 (00:25→23:07)
[2019-10-21] MEDS: HALOPERIDOL LACTATE 5MG/ML VIAL IM PRN ×3 (00:58→21:43)
[2019-10-21] MEDS: DIPHENHYDRAMINE 50MG/ML VIAL IV PRN ×4 (01:16→23:21)
[2019-10-21] MEDS: METRONIDAZOLE 500 MG PREMIX 100 ML IV SCH ×3 (04:05→20:03)
[2019-10-21 07:15] LABS: BASOPHILS % 0.4 % (0.0-2.0); EOSINOPHILS % 0.3 % (0.0-5.0); HEMATOCRIT. 28.4 % (42.0-52.0); HEMOGLOBIN. 9.6 g/dL (14.0-18.0); LYMPHOCYTES % 15.3 % (20.0-50.0); MEAN PLATELET VOLUME 9.4 fl (7.4-10.4); MONOCYTES % 10.2 % (2.0-8.0); NEUTROPHILS % 73.8 % (40.0-76.0); PLATELET 597 x1000/uL (130-400); RED BLOOD CELL COUNT 3.19 mill/uL (4.7-6.1); RED CELL DISTRIBUTION WIDTH 15.6 % (11.6-14.6)
[2019-10-21] MEDS: RISPERIDONE 1MG TABLET PO SCH ×2 (08:33→20:27)
[2019-10-21] MEDS: LACTULOSE 20G/30ML UDC PO SCH (08:33)
[2019-10-21] MEDS: ZINC SULFATE 220 MG ( 50 ) CAPSULE PO SCH (08:33)
[2019-10-21] MEDS: PANTOPRAZOLE SODIUM 40 MG/VIAL IV SCH ×2 (08:33→19:05)
[2019-10-21] MEDS: RIFAXIMIN 550 MG TABLET PO SCH ×2 (08:34→20:27)
[2019-10-21] MEDS: LEVETIRACETAM 500MG PREMIX 100 ML IV SCH ×2 (08:37→20:57)
[2019-10-21] MEDS: ASCORBIC ACID 500 MG TABLET PO SCH (08:37)
[2019-10-21] MEDS: ENOXAPARIN 30MG/0.3ML SYR SUBCUT SCH (09:27)
[2019-10-21] MEDS: DEXT 10% WATER 1,000 ML IV SCH (09:28)
[2019-10-21] MEDS: METOPROLOL TARTRATE 5MG/5ML VIAL IV PRN (14:13)
[2019-10-21] MEDS ORDERED: HEPARIN SODIUM 1,000 UNIT/1ML VIAL IV NR (16:15)
[2019-10-21] MEDS: CEFEPIME 1,000 MG in DEXTROSE 5% WATER 50 ML IV SCH (19:04)
[2019-10-22] VITALS (12 sets, daily range): BP systolic 116–157; BP diastolic 63–101
[2019-10-22] MEDS: ACETAMINOPHEN 325MG TABLET PO PRN (00:36)
[2019-10-22] MEDS: MORPHINE SULFATE 2 MG/ML CPJ (NOT FOR IM USE) IV PRN ×3 (03:01→17:39)
[2019-10-22] MEDS: METRONIDAZOLE 500 MG PREMIX 100 ML IV SCH ×3 (03:36→20:10)
[2019-10-22] MEDS: LORAZEPAM 2MG/ML CPJ IV PRN ×3 (04:44→17:37)
[2019-10-22] MEDS: METOCLOPRAMIDE HCL 10MG/2ML VIAL IV SCH ×4 (06:12→23:40)
[2019-10-22 07:13] LABS: BASOPHILS % 0.6 % (0.0-2.0); EOSINOPHILS % 0.7 % (0.0-5.0); HEMATOCRIT. 29.2 % (42.0-52.0); HEMOGLOBIN. 9.8 g/dL (14.0-18.0); LYMPHOCYTES % 9.2 % (20.0-50.0); MEAN CORPUSCULAR VOLUME 89.1 fL (80.0-94.0); MEAN PLATELET VOLUME 9.3 fl (7.4-10.4); NEUTROPHILS % 75.5 % (40.0-76.0); PLATELET 559 x1000/uL (130-400); RED BLOOD CELL COUNT 3.28 mill/uL (4.7-6.1); RED CELL DISTRIBUTION WIDTH 17.3 % (11.6-14.6)
[2019-10-22] MEDS: LEVETIRACETAM 500MG PREMIX 100 ML IV SCH ×2 (08:46→21:56)
[2019-10-22] MEDS: PANTOPRAZOLE SODIUM 40 MG/VIAL IV SCH ×2 (08:46→17:36)
[2019-10-22] MEDS: LACTULOSE 20G/30ML UDC PO SCH (08:46)
[2019-10-22] MEDS: ASCORBIC ACID 500 MG TABLET PO SCH (08:47)
[2019-10-22] MEDS: RIFAXIMIN 550 MG TABLET PO SCH ×2 (08:47→20:56)
[2019-10-22] MEDS: RISPERIDONE 1MG TABLET PO SCH ×2 (08:47→20:56)
[2019-10-22] MEDS: ZINC SULFATE 220 MG ( 50 ) CAPSULE PO SCH (08:47)
[2019-10-22] MEDS: DIPHENHYDRAMINE 50MG/ML VIAL IV PRN (08:48)
[2019-10-22] MEDS: DEXT 10% WATER 1,000 ML IV SCH (08:49)
[2019-10-22] MEDS: ENOXAPARIN 30MG/0.3ML SYR SUBCUT SCH (10:17)
[2019-10-22] MEDS: CEFEPIME 1,000 MG in DEXTROSE 5% WATER 50 ML IV SCH (17:37)
[2019-10-23] VITALS (11 sets, daily range): BP systolic 132–155; BP diastolic 44–92
[2019-10-23] MEDS: METRONIDAZOLE 500 MG PREMIX 100 ML IV SCH ×3 (04:01→20:29)
[2019-10-23] MEDS: METOCLOPRAMIDE HCL 10MG/2ML VIAL IV SCH ×4 (05:11→23:16)
[2019-10-23 06:55] LABS: HEMATOCRIT. 25.3 % (42.0-52.0); HEMOGLOBIN. 8.5 g/dL (14.0-18.0); MEAN CORPUSCULAR HEMOGLOBIN 29.9 pg (28.0-32.0); MEAN CORPUSCULAR VOLUME 89.3 fL (80.0-94.0); MEAN PLATELET VOLUME 9.6 fl (7.4-10.4); PLATELET 510 x1000/uL (130-400); RED BLOOD CELL COUNT 2.84 mill/uL (4.7-6.1); RED CELL DISTRIBUTION WIDTH 18.5 % (11.6-14.6)
[2019-10-23] MEDS: RIFAXIMIN 550 MG TABLET PO SCH ×2 (09:18→23:01)
[2019-10-23] MEDS: PANTOPRAZOLE SODIUM 40 MG/VIAL IV SCH ×2 (09:19→17:17)
[2019-10-23] MEDS: RISPERIDONE 1MG TABLET PO SCH ×2 (09:19→23:01)
[2019-10-23] MEDS: ASCORBIC ACID 500 MG TABLET PO SCH (09:19)
[2019-10-23] MEDS: ZINC SULFATE 220 MG ( 50 ) CAPSULE PO SCH (09:20)
[2019-10-23] MEDS: LACTULOSE 20G/30ML UDC PO SCH (09:20)
[2019-10-23] MEDS: ENOXAPARIN 30MG/0.3ML SYR SUBCUT SCH (09:21)
[2019-10-23] MEDS: LEVETIRACETAM 500MG PREMIX 100 ML IV SCH ×2 (09:36→23:01)
[2019-10-23 13:55] LABS: PLATELET ESTIMATE INCREASED
[2019-10-23] MEDS: LORAZEPAM 2MG/ML CPJ IV PRN (17:17)
[2019-10-23] MEDS: CEFEPIME 1,000 MG in DEXTROSE 5% WATER 50 ML IV SCH (17:32)
[2019-10-23] MEDS: DEXT 10% WATER 1,000 ML IV SCH (18:03)
[2019-10-24] VITALS (12 sets, daily range): BP systolic 128–153; BP diastolic 49–115
[2019-10-24] MEDS: METRONIDAZOLE 500 MG PREMIX 100 ML IV SCH ×3 (04:10→20:08)
[2019-10-24] MEDS: METOCLOPRAMIDE HCL 10MG/2ML VIAL IV SCH ×4 (05:02→23:08)
[2019-10-24 05:52] LABS: HEMATOCRIT. 25.3 % (42.0-52.0); HEMOGLOBIN. 8.4 g/dL (14.0-18.0); MEAN CORPUSCULAR VOLUME 90.2 fL (80.0-94.0); PLATELET 507 x1000/uL (130-400); RED BLOOD CELL COUNT 2.81 mill/uL (4.7-6.1); RED CELL DISTRIBUTION WIDTH 18.1 % (11.6-14.6)
[2019-10-24] MEDS: LACTULOSE 20G/30ML UDC PO SCH (08:29)
[2019-10-24] MEDS: LEVETIRACETAM 500MG PREMIX 100 ML IV SCH ×2 (08:29→21:13)
[2019-10-24] MEDS: LORAZEPAM 2MG/ML CPJ IV PRN ×2 (08:30→15:54)
[2019-10-24] MEDS: PANTOPRAZOLE SODIUM 40 MG/VIAL IV SCH ×2 (08:30→17:57)
[2019-10-24] MEDS: ZINC SULFATE 220 MG ( 50 ) CAPSULE PO SCH (08:30)
[2019-10-24] MEDS: RISPERIDONE 1MG TABLET PO SCH ×2 (08:30→20:08)
[2019-10-24] MEDS: RIFAXIMIN 550 MG TABLET PO SCH ×2 (08:30→20:07)
[2019-10-24] MEDS: ASCORBIC ACID 500 MG TABLET PO SCH (08:30)
[2019-10-24] MEDS: ENOXAPARIN 30MG/0.3ML SYR SUBCUT SCH (10:00)
[2019-10-24] MEDS: DEXT 10% WATER 1,000 ML IV SCH (11:00)
[2019-10-24] MEDS ORDERED: VANCOMYCIN 750 MG PREMIX 150 ML IV NR (14:00)
[2019-10-24] MEDS: CEFEPIME 1,000 MG in DEXTROSE 5% WATER 50 ML IV SCH (17:58)
[2019-10-24 18:04] LABS: PLATELET ESTIMATE INCREASED
[2019-10-24] MEDS: HALOPERIDOL LACTATE 5MG/ML VIAL IM PRN (19:07)
[2019-10-24] MEDS: DIPHENHYDRAMINE 50MG/ML VIAL IV PRN (20:17)
[2019-10-24] MEDS: MORPHINE SULFATE 2 MG/ML CPJ (NOT FOR IM USE) IV PRN (20:18)
[2019-10-24] MEDS: MICAFUNGIN 100 MG in SODIUM CHLORIDE 0.9% 100 ML IV SCH (22:31)
[2019-10-25] VITALS (12 sets, daily range): BP systolic 131–155; BP diastolic 57–109
[2019-10-25] MEDS: LORAZEPAM 2MG/ML CPJ IV PRN ×2 (01:48→08:01)
[2019-10-25] MEDS: MORPHINE SULFATE 2 MG/ML CPJ (NOT FOR IM USE) IV PRN (03:05)
[2019-10-25] MEDS: DIPHENHYDRAMINE 50MG/ML VIAL IV PRN ×2 (03:06→08:01)
[2019-10-25] MEDS: METRONIDAZOLE 500 MG PREMIX 100 ML IV SCH ×3 (04:00→20:36)
[2019-10-25] MEDS: HALOPERIDOL LACTATE 5MG/ML VIAL IM PRN ×2 (04:00→10:24)
[2019-10-25] MEDS: METOCLOPRAMIDE HCL 10MG/2ML VIAL IV SCH ×3 (05:58→17:56)
[2019-10-25] MEDS: LEVETIRACETAM 500MG PREMIX 100 ML IV SCH ×2 (08:00→21:08)
[2019-10-25] MEDS: LACTULOSE 20G/30ML UDC PO SCH (08:00)
[2019-10-25] MEDS: RISPERIDONE 1MG TABLET PO SCH ×2 (08:01→21:09)
[2019-10-25] MEDS: ASCORBIC ACID 500 MG TABLET PO SCH (08:01)
[2019-10-25] MEDS: ZINC SULFATE 220 MG ( 50 ) CAPSULE PO SCH (08:01)
[2019-10-25] MEDS: PANTOPRAZOLE SODIUM 40 MG/VIAL IV SCH ×2 (08:01→17:56)
[2019-10-25] MEDS: RIFAXIMIN 550 MG TABLET PO SCH ×2 (08:06→21:08)
[2019-10-25] MEDS: DEXT 10% WATER 1,000 ML IV SCH (10:22)
[2019-10-25] MEDS: ENOXAPARIN 30MG/0.3ML SYR SUBCUT SCH (10:23)
[2019-10-25] MEDS: CEFEPIME 1,000 MG in DEXTROSE 5% WATER 50 ML IV SCH (17:57)
[2019-10-25] MEDS: MICAFUNGIN 100 MG in SODIUM CHLORIDE 0.9% 100 ML IV SCH (21:45)
[2019-10-26] VITALS (10 sets, daily range): BP systolic 144–174; BP diastolic 89–118
[2019-10-26] MEDS: METOCLOPRAMIDE HCL 10MG/2ML VIAL IV SCH ×5 (05:36→23:48)
[2019-10-26 06:32] LABS: EOSINOPHILS % 1.9 % (0.0-5.0); HEMATOCRIT. 23.6 % (42.0-52.0); MEAN CORPUSCULAR HEMOGLOBIN 30.5 pg (28.0-32.0); MEAN CORPUSCULAR VOLUME 90.4 fL (80.0-94.0); MEAN PLATELET VOLUME 10.2 fl (7.4-10.4); MONOCYTES % 14.4 % (2.0-8.0); NEUTROPHILS % 70.7 % (40.0-76.0); PLATELET 483 x1000/uL (130-400); RED BLOOD CELL COUNT 2.61 mill/uL (4.7-6.1); RED CELL DISTRIBUTION WIDTH 18.3 % (11.6-14.6)
[2019-10-26] MEDS: RACEPINEPHRINE 2.25% 0.5ML NEB VIAL HHN PRN ×3 (08:32→23:59)
[2019-10-26] MEDS: ZINC SULFATE 220 MG ( 50 ) CAPSULE PO SCH (08:48)
[2019-10-26] MEDS: LACTULOSE 20G/30ML UDC PO SCH (08:48)
[2019-10-26] MEDS: PANTOPRAZOLE SODIUM 40 MG/VIAL IV SCH ×2 (08:48→18:08)
[2019-10-26] MEDS: RISPERIDONE 1MG TABLET PO SCH ×2 (08:48→21:23)
[2019-10-26] MEDS: LEVETIRACETAM 500MG PREMIX 100 ML IV SCH ×2 (08:48→21:22)
[2019-10-26] MEDS: ASCORBIC ACID 500 MG TABLET PO SCH (08:48)
[2019-10-26] MEDS: LORAZEPAM 2MG/ML CPJ IV PRN (09:49)
[2019-10-26] MEDS: DEXT 10% WATER 1,000 ML IV SCH (09:49)
[2019-10-26] MEDS: MORPHINE SULFATE 2 MG/ML CPJ (NOT FOR IM USE) IV PRN (09:50)
[2019-10-26] MEDS: ENOXAPARIN 30MG/0.3ML SYR SUBCUT SCH (09:51)
[2019-10-26] MEDS: HALOPERIDOL LACTATE 5MG/ML VIAL IM PRN (11:36)
[2019-10-26] MEDS ORDERED: DIPHENHYDRAMINE 50MG/ML VIAL IV ONE (12:00)
[2019-10-26] MEDS ORDERED: HALOPERIDOL LACTATE 5MG/ML VIAL IM ONE (12:00)
[2019-10-26] MEDS: METOPROLOL TARTRATE 5MG/5ML VIAL IV PRN (12:12)
[2019-10-26] MEDS: CEFEPIME 1,000 MG in DEXTROSE 5% WATER 50 ML IV SCH (18:08)
[2019-10-26] MEDS: DIPHENHYDRAMINE 50MG/ML VIAL IV PRN (18:08)
[2019-10-26] MEDS: MICAFUNGIN 100 MG in SODIUM CHLORIDE 0.9% 100 ML IV SCH (21:22)
[2019-10-26] MEDS: RIFAXIMIN 550 MG TABLET PO SCH (21:23)
[2019-10-27] VITALS (11 sets, daily range): BP systolic 131–189; BP diastolic 84–100
[2019-10-27] MEDS: MORPHINE SULFATE 2 MG/ML CPJ (NOT FOR IM USE) IV PRN ×2 (02:13→13:36)
[2019-10-27] MEDS: CLONIDINE 0.1MG TABLET PO PRN (03:19)
[2019-10-27] MEDS: METOCLOPRAMIDE HCL 10MG/2ML VIAL IV SCH ×4 (06:15→23:46)
[2019-10-27 06:21] LABS: BASOPHILS % 1.2 % (0.0-2.0); EOSINOPHILS % 1.4 % (0.0-5.0); HEMATOCRIT. 22.9 % (42.0-52.0); HEMOGLOBIN. 7.7 g/dL (14.0-18.0); LYMPHOCYTES % 15.4 % (20.0-50.0); MEAN CORPUSCULAR HEMOGLOBIN 30.3 pg (28.0-32.0); MEAN CORPUSCULAR VOLUME 90.4 fL (80.0-94.0); MEAN PLATELET VOLUME 10.1 fl (7.4-10.4); MONOCYTES % 13.3 % (2.0-8.0); NEUTROPHILS % 68.7 % (40.0-76.0); PLATELET 562 x1000/uL (130-400); RED BLOOD CELL COUNT 2.53 mill/uL (4.7-6.1); RED CELL DISTRIBUTION WIDTH 18.7 % (11.6-14.6)
[2019-10-27] MEDS: RIFAXIMIN 550 MG TABLET PO SCH ×2 (09:03→21:57)
[2019-10-27] MEDS: RISPERIDONE 1MG TABLET PO SCH ×2 (09:03→21:57)
[2019-10-27] MEDS: LACTULOSE 20G/30ML UDC PO SCH (09:03)
[2019-10-27] MEDS: ZINC SULFATE 220 MG ( 50 ) CAPSULE PO SCH (09:03)
[2019-10-27] MEDS: PANTOPRAZOLE SODIUM 40 MG/VIAL IV SCH ×2 (09:03→17:20)
[2019-10-27] MEDS: ASCORBIC ACID 500 MG TABLET PO SCH (09:03)
[2019-10-27] MEDS: LEVETIRACETAM 500MG PREMIX 100 ML IV SCH ×2 (09:04→21:56)
[2019-10-27] MEDS: LORAZEPAM 2MG/ML CPJ IV PRN (11:52)
[2019-10-27] MEDS: HALOPERIDOL LACTATE 5MG/ML VIAL IM PRN (12:31)
[2019-10-27] MEDS: CEFEPIME 1,000 MG in DEXTROSE 5% WATER 50 ML IV SCH (17:20)
[2019-10-27] MEDS: VORICONAZOLE 200MG TABLET NG SCH (21:57)
[2019-10-27] MEDS: CLONAZEPAM 0.5MG TABLET PO SCH (22:04)
[2019-10-28] VITALS (11 sets, daily range): BP systolic 132–153; BP diastolic 76–102
[2019-10-28] MEDS: CLONAZEPAM 0.5MG TABLET PO SCH ×3 (06:15→21:47)
[2019-10-28] MEDS: METOCLOPRAMIDE HCL 10MG/2ML VIAL IV SCH ×3 (06:15→17:19)
[2019-10-28] MEDS: PANTOPRAZOLE SODIUM 40 MG/VIAL IV SCH ×2 (09:10→17:19)
[2019-10-28] MEDS: ASCORBIC ACID 500 MG TABLET PO SCH (09:10)
[2019-10-28] MEDS: ZINC SULFATE 220 MG ( 50 ) CAPSULE PO SCH (09:10)
[2019-10-28] MEDS: LACTULOSE 20G/30ML UDC PO SCH (09:14)
[2019-10-28] MEDS: LEVETIRACETAM 500MG PREMIX 100 ML IV SCH ×2 (09:15→21:46)
[2019-10-28] MEDS: RIFAXIMIN 550 MG TABLET PO SCH ×2 (09:17→21:47)
[2019-10-28] MEDS: VORICONAZOLE 200MG TABLET NG SCH ×2 (09:17→21:47)
[2019-10-28] MEDS: RISPERIDONE 1MG TABLET PO SCH ×2 (09:17→21:47)
[2019-10-28 10:37] LABS: BASOPHILS % 1.5 % (0.0-2.0); EOSINOPHILS % 2.8 % (0.0-5.0); HEMATOCRIT. 21.7 % (42.0-52.0); HEMOGLOBIN. 7.4 g/dL (14.0-18.0); LYMPHOCYTES % 12.6 % (20.0-50.0); MEAN PLATELET VOLUME 9.9 fl (7.4-10.4); MONOCYTES % 7.9 % (2.0-8.0); NEUTROPHILS % 75.2 % (40.0-76.0); PLATELET 504 x1000/uL (130-400); RED BLOOD CELL COUNT 2.39 mill/uL (4.7-6.1); RED CELL DISTRIBUTION WIDTH 17.9 % (11.6-14.6)
[2019-10-28] MEDS: ACETAMINOPHEN 325MG TABLET PO PRN (17:19)
[2019-10-28 20:27] LABS: HEMATOCRIT 21.3 % (42.0-52.0); HEMOGLOBIN 7.1 g/dL (14.0-18.0)
[2019-10-29] VITALS (15 sets, daily range): BP systolic 123–156; BP diastolic 81–98
[2019-10-29] MEDS: METOCLOPRAMIDE HCL 10MG/2ML VIAL IV SCH ×4 (00:38→17:55)
[2019-10-29] MEDS: CLONAZEPAM 0.5MG TABLET PO SCH ×3 (06:18→20:54)
[2019-10-29] MEDS: LEVETIRACETAM 500MG PREMIX 100 ML IV SCH ×2 (09:33→20:53)
[2019-10-29] MEDS: ZINC SULFATE 220 MG ( 50 ) CAPSULE PO SCH (09:34)
[2019-10-29] MEDS: VORICONAZOLE 200MG TABLET NG SCH ×2 (09:34→20:53)
[2019-10-29] MEDS: RISPERIDONE 1MG TABLET PO SCH ×2 (09:34→20:53)
[2019-10-29] MEDS: ASCORBIC ACID 500 MG TABLET PO SCH (09:34)
[2019-10-29] MEDS: LACTULOSE 20G/30ML UDC PO SCH (09:34)
[2019-10-29] MEDS: PANTOPRAZOLE SODIUM 40 MG/VIAL IV SCH ×2 (09:35→17:55)
[2019-10-29] MEDS: RIFAXIMIN 550 MG TABLET PO SCH ×2 (09:40→20:53)
[2019-10-29 11:53] LABS: BASOPHILS % 1.9 % (0.0-2.0); EOSINOPHILS % 3.3 % (0.0-5.0); HEMATOCRIT. 26.9 % (42.0-52.0); HEMOGLOBIN. 8.6 g/dL (14.0-18.0); MEAN CORPUSCULAR HEMOGLOBIN 29.8 pg (28.0-32.0); MEAN CORPUSCULAR VOLUME 92.7 fL (80.0-94.0); MEAN PLATELET VOLUME 9.8 fl (7.4-10.4); MONOCYTES % 13.8 % (2.0-8.0); PLATELET 491 x1000/uL (130-400); RED CELL DISTRIBUTION WIDTH 17.4 % (11.6-14.6)
[2019-10-29 16:28] LABS: CREATINE KINASE 636 IU/L (39-308)
[2019-10-30] VITALS (12 sets, daily range): BP systolic 134–154; BP diastolic 83–104
[2019-10-30] MEDS: METOCLOPRAMIDE HCL 10MG/2ML VIAL IV SCH ×4 (00:04→17:46)
[2019-10-30] MEDS: CLONAZEPAM 0.5MG TABLET PO SCH ×3 (05:02→20:31)
[2019-10-30 07:15] LABS: BASOPHILS % 1.7 % (0.0-2.0); EOSINOPHILS % 3.7 % (0.0-5.0); HEMATOCRIT. 24.5 % (42.0-52.0); LYMPHOCYTES % 12.9 % (20.0-50.0); MEAN CORPUSCULAR HEMOGLOBIN 29.5 pg (28.0-32.0); MEAN CORPUSCULAR VOLUME 90.6 fL (80.0-94.0); MEAN PLATELET VOLUME 9.4 fl (7.4-10.4); MONOCYTES % 11.1 % (2.0-8.0); NEUTROPHILS % 70.6 % (40.0-76.0); PLATELET 522 x1000/uL (130-400); RED CELL DISTRIBUTION WIDTH 16.4 % (11.6-14.6)
[2019-10-30] MEDS: RISPERIDONE 1MG TABLET PO SCH ×2 (09:28→20:31)
[2019-10-30] MEDS: PANTOPRAZOLE SODIUM 40 MG/VIAL IV SCH ×2 (09:28→17:46)
[2019-10-30] MEDS: LACTULOSE 20G/30ML UDC PO SCH (09:28)
[2019-10-30] MEDS: ZINC SULFATE 220 MG ( 50 ) CAPSULE PO SCH (09:28)
[2019-10-30] MEDS: VORICONAZOLE 200MG TABLET NG SCH ×2 (09:28→20:31)
[2019-10-30] MEDS: ASCORBIC ACID 500 MG TABLET PO SCH (09:28)
[2019-10-30] MEDS: RIFAXIMIN 550 MG TABLET PO SCH ×2 (09:28→20:31)
[2019-10-30] MEDS: LEVETIRACETAM 500MG PREMIX 100 ML IV SCH ×2 (09:29→20:31)
[2019-10-30] MEDS: DIPHENHYDRAMINE 50MG/ML VIAL IV PRN (14:24)
[2019-10-31] VITALS (12 sets, daily range): BP systolic 146–170; BP diastolic 43–98
[2019-10-31] MEDS: LORAZEPAM 2MG/ML CPJ IV PRN (01:06)
[2019-10-31] MEDS: METOCLOPRAMIDE HCL 10MG/2ML VIAL IV SCH ×4 (01:06→17:41)
[2019-10-31] MEDS: CLONAZEPAM 0.5MG TABLET PO SCH ×3 (05:13→22:38)
[2019-10-31 08:20] LABS: BASOPHILS % 1.9 % (0.0-2.0); EOSINOPHILS % 2.8 % (0.0-5.0); HEMATOCRIT. 26.4 % (42.0-52.0); HEMOGLOBIN. 8.8 g/dL (14.0-18.0); LYMPHOCYTES % 12.5 % (20.0-50.0); MEAN CORPUSCULAR HEMOGLOBIN 30.5 pg (28.0-32.0); MEAN CORPUSCULAR VOLUME 91.2 fL (80.0-94.0); MEAN PLATELET VOLUME 9.3 fl (7.4-10.4); MONOCYTES % 8.8 % (2.0-8.0); PLATELET 543 x1000/uL (130-400); RED BLOOD CELL COUNT 2.89 mill/uL (4.7-6.1); RED CELL DISTRIBUTION WIDTH 16.4 % (11.6-14.6)
[2019-10-31] MEDS: LACTULOSE 20G/30ML UDC PO SCH (08:34)
[2019-10-31] MEDS: PANTOPRAZOLE SODIUM 40 MG/VIAL IV SCH ×2 (08:34→17:41)
[2019-10-31] MEDS: RIFAXIMIN 550 MG TABLET PO SCH ×2 (08:34→20:34)
[2019-10-31] MEDS: ASCORBIC ACID 500 MG TABLET PO SCH (08:34)
[2019-10-31] MEDS: ZINC SULFATE 220 MG ( 50 ) CAPSULE PO SCH (08:35)
[2019-10-31] MEDS: RISPERIDONE 1MG TABLET PO SCH ×2 (08:35→20:35)
[2019-10-31] MEDS: VORICONAZOLE 200MG TABLET NG SCH ×2 (08:35→20:27)
[2019-10-31] MEDS: LEVETIRACETAM 500MG PREMIX 100 ML IV SCH ×2 (08:36→20:26)
[2019-10-31] MEDS: HYDRALAZINE HCL 10MG TABLET PO SCH ×2 (13:18→22:37)
[2019-11-01] VITALS (12 sets, daily range): BP systolic 143–157; BP diastolic 86–110
[2019-11-01] MEDS: METOCLOPRAMIDE HCL 10MG/2ML VIAL IV SCH ×5 (00:11→23:54)
[2019-11-01] MEDS: CLONIDINE 0.1MG TABLET PO PRN (00:14)
[2019-11-01] MEDS: CLONAZEPAM 0.5MG TABLET PO SCH ×3 (05:46→22:44)
[2019-11-01] MEDS: HYDRALAZINE HCL 10MG TABLET PO SCH (05:47)
[2019-11-01 06:08] LABS: BASOPHILS % 2.4 % (0.0-2.0); EOSINOPHILS % 3.8 % (0.0-5.0); HEMATOCRIT. 27.8 % (42.0-52.0); LYMPHOCYTES % 14.4 % (20.0-50.0); MEAN PLATELET VOLUME 9.4 fl (7.4-10.4); MONOCYTES % 10.1 % (2.0-8.0); NEUTROPHILS % 69.3 % (40.0-76.0); PLATELET 570 x1000/uL (130-400); RED BLOOD CELL COUNT 3.02 mill/uL (4.7-6.1); RED CELL DISTRIBUTION WIDTH 16.5 % (11.6-14.6)
[2019-11-01] MEDS: ZINC SULFATE 220 MG ( 50 ) CAPSULE PO SCH (09:04)
[2019-11-01] MEDS: ASCORBIC ACID 500 MG TABLET PO SCH (09:04)
[2019-11-01] MEDS: PANTOPRAZOLE SODIUM 40 MG/VIAL IV SCH ×2 (09:04→17:08)
[2019-11-01] MEDS: RISPERIDONE 1MG TABLET PO SCH ×2 (09:04→20:08)
[2019-11-01] MEDS: VORICONAZOLE 200MG TABLET NG SCH ×2 (09:04→20:08)
[2019-11-01] MEDS: LACTULOSE 20G/30ML UDC PO SCH (09:05)
[2019-11-01] MEDS: LEVETIRACETAM 500MG PREMIX 100 ML IV SCH (09:05)
[2019-11-01] MEDS: HYDRALAZINE HCL 25MG TABLET PO SCH ×2 (13:53→22:46)
[2019-11-01] MEDS: LEVETIRACETAM 500MG/5ML CUP PO SCH (20:08)
[2019-11-02] VITALS (10 sets, daily range): BP systolic 147–161; BP diastolic 84–110
[2019-11-02] MEDS: CLONAZEPAM 0.5MG TABLET PO SCH ×3 (05:38→21:51)
[2019-11-02] MEDS: HYDRALAZINE HCL 25MG TABLET PO SCH (05:38)
[2019-11-02] MEDS: METOCLOPRAMIDE HCL 10MG/2ML VIAL IV SCH ×3 (05:38→17:47)
[2019-11-02 06:48] LABS: BASOPHILS % 2.2 % (0.0-2.0); EOSINOPHILS % 3.8 % (0.0-5.0); HEMATOCRIT. 25.9 % (42.0-52.0); HEMOGLOBIN. 8.5 g/dL (14.0-18.0); LYMPHOCYTES % 14.1 % (20.0-50.0); MEAN CORPUSCULAR HEMOGLOBIN 30.1 pg (28.0-32.0); MEAN CORPUSCULAR VOLUME 91.7 fL (80.0-94.0); MEAN PLATELET VOLUME 9.4 fl (7.4-10.4); MONOCYTES % 7.2 % (2.0-8.0); NEUTROPHILS % 72.7 % (40.0-76.0); PLATELET 538 x1000/uL (130-400); RED BLOOD CELL COUNT 2.82 mill/uL (4.7-6.1)
[2019-11-02] MEDS: LEVETIRACETAM 500MG/5ML CUP PO SCH ×2 (09:03→21:49)
[2019-11-02] MEDS: LACTULOSE 20G/30ML UDC PO SCH (09:03)
[2019-11-02] MEDS: RISPERIDONE 1MG TABLET PO SCH ×2 (09:04→21:51)
[2019-11-02] MEDS: VORICONAZOLE 200MG TABLET NG SCH ×2 (09:04→21:52)
[2019-11-02] MEDS: FERROUS SULFATE 325MG TABLET PO SCH (09:04)
[2019-11-02] MEDS: PANTOPRAZOLE SODIUM 40 MG/VIAL IV SCH ×2 (09:04→17:45)
[2019-11-02] MEDS: ASCORBIC ACID 500 MG TABLET PO SCH (09:04)
[2019-11-02] MEDS: ZINC SULFATE 220 MG ( 50 ) CAPSULE PO SCH (09:04)
[2019-11-02] MEDS: HYDRALAZINE HCL 50MG TABLET PO SCH ×2 (14:51→21:52)
[2019-11-03] VITALS (13 sets, daily range): BP systolic 136–165; BP diastolic 81–104
[2019-11-03] MEDS: METOCLOPRAMIDE HCL 10MG/2ML VIAL IV SCH ×4 (00:52→17:51)
[2019-11-03] MEDS: CLONIDINE 0.1MG TABLET PO PRN ×3 (00:55→16:10)
[2019-11-03] MEDS: CLONAZEPAM 0.5MG TABLET PO SCH ×3 (06:33→21:25)
[2019-11-03] MEDS: HYDRALAZINE HCL 50MG TABLET PO SCH ×3 (06:33→21:25)
[2019-11-03 06:58] LABS: BASOPHILS % 2.4 % (0.0-2.0); EOSINOPHILS % 3.8 % (0.0-5.0); HEMATOCRIT. 25.8 % (42.0-52.0); HEMOGLOBIN. 8.5 g/dL (14.0-18.0); LYMPHOCYTES % 13.3 % (20.0-50.0); MEAN CORPUSCULAR HEMOGLOBIN 30.4 pg (28.0-32.0); MEAN CORPUSCULAR VOLUME 91.8 fL (80.0-94.0); MEAN PLATELET VOLUME 9.4 fl (7.4-10.4); MONOCYTES % 6.5 % (2.0-8.0); PLATELET 567 x1000/uL (130-400); RED BLOOD CELL COUNT 2.81 mill/uL (4.7-6.1); RED CELL DISTRIBUTION WIDTH 15.7 % (11.6-14.6)
[2019-11-03] MEDS: LEVETIRACETAM 500MG/5ML CUP PO SCH ×2 (08:32→21:24)
[2019-11-03] MEDS: PANTOPRAZOLE SODIUM 40 MG/VIAL IV SCH ×2 (08:32→17:51)
[2019-11-03] MEDS: ZINC SULFATE 220 MG ( 50 ) CAPSULE PO SCH (08:32)
[2019-11-03] MEDS: LACTULOSE 20G/30ML UDC PO SCH (08:32)
[2019-11-03] MEDS: VORICONAZOLE 200MG TABLET NG SCH (08:32)
[2019-11-03] MEDS: FERROUS SULFATE 325MG TABLET PO SCH (08:33)
[2019-11-03] MEDS: RISPERIDONE 1MG TABLET PO SCH ×2 (08:33→21:25)
[2019-11-03] MEDS: ASCORBIC ACID 500 MG TABLET PO SCH (08:33)
[2019-11-03] MEDS ORDERED: METOPROLOL TARTRATE 5MG/5ML VIAL IV NR (10:00)
[2019-11-03] MEDS: AMLODIPINE 2.5MG TABLET PO SCH ×2 (12:45→21:24)
[2019-11-04] VITALS (12 sets, daily range): BP systolic 138–163; BP diastolic 81–106
[2019-11-04] MEDS: METOCLOPRAMIDE HCL 10MG/2ML VIAL IV SCH ×5 (00:07→23:41)
[2019-11-04] MEDS: DIPHENHYDRAMINE 50MG/ML VIAL IV PRN (02:44)
[2019-11-04] MEDS: CLONAZEPAM 0.5MG TABLET PO SCH ×3 (06:03→22:01)
[2019-11-04] MEDS: HYDRALAZINE HCL 50MG TABLET PO SCH ×3 (06:04→22:01)
[2019-11-04 06:38] LABS: BASOPHILS % 2.9 % (0.0-2.0); EOSINOPHILS % 4.1 % (0.0-5.0); HEMATOCRIT. 27.2 % (42.0-52.0); LYMPHOCYTES % 15.6 % (20.0-50.0); MEAN CORPUSCULAR HEMOGLOBIN 30.3 pg (28.0-32.0); MEAN CORPUSCULAR VOLUME 91.3 fL (80.0-94.0); MEAN PLATELET VOLUME 9.5 fl (7.4-10.4); MONOCYTES % 5.9 % (2.0-8.0); NEUTROPHILS % 71.5 % (40.0-76.0); PLATELET 585 x1000/uL (130-400); RED BLOOD CELL COUNT 2.98 mill/uL (4.7-6.1); RED CELL DISTRIBUTION WIDTH 15.7 % (11.6-14.6)
[2019-11-04] MEDS: PANTOPRAZOLE SODIUM 40 MG/VIAL IV SCH ×3 (09:00→17:40)
[2019-11-04] MEDS: LEVETIRACETAM 500MG/5ML CUP PO SCH ×2 (09:48→20:49)
[2019-11-04] MEDS: ASCORBIC ACID 500 MG TABLET PO SCH (09:48)
[2019-11-04] MEDS: FERROUS SULFATE 325MG TABLET PO SCH (09:48)
[2019-11-04] MEDS: RISPERIDONE 1MG TABLET PO SCH ×2 (09:48→20:49)
[2019-11-04] MEDS: ZINC SULFATE 220 MG ( 50 ) CAPSULE PO SCH (09:48)
[2019-11-04] MEDS: AMLODIPINE 2.5MG TABLET PO SCH ×2 (09:49→20:49)
[2019-11-04] MEDS: LACTULOSE 20G/30ML UDC PO SCH (10:25)
[2019-11-05] VITALS (12 sets, daily range): BP systolic 132–158; BP diastolic 53–103
[2019-11-05] MEDS: DIPHENHYDRAMINE 50MG/ML VIAL IV PRN ×2 (01:21→14:18)
[2019-11-05] MEDS: HALOPERIDOL LACTATE 5MG/ML VIAL IM PRN ×3 (02:15→23:04)
[2019-11-05] MEDS: METOCLOPRAMIDE HCL 10MG/2ML VIAL IV SCH ×3 (05:14→17:00)
[2019-11-05] MEDS: CLONAZEPAM 0.5MG TABLET PO SCH ×3 (05:14→22:59)
[2019-11-05] MEDS: HYDRALAZINE HCL 50MG TABLET PO SCH ×3 (05:15→22:02)
[2019-11-05 06:42] LABS: BASOPHILS % 2.3 % (0.0-2.0); EOSINOPHILS % 3.1 % (0.0-5.0); HEMOGLOBIN. 10.3 g/dL (14.0-18.0); LYMPHOCYTES % 15.9 % (20.0-50.0); MEAN CORPUSCULAR HEMOGLOBIN 29.9 pg (28.0-32.0); MEAN CORPUSCULAR VOLUME 92.3 fL (80.0-94.0); MEAN PLATELET VOLUME 9.8 fl (7.4-10.4); NEUTROPHILS % 72.7 % (40.0-76.0); PLATELET 663 x1000/uL (130-400); RED BLOOD CELL COUNT 3.46 mill/uL (4.7-6.1); RED CELL DISTRIBUTION WIDTH 16.1 % (11.6-14.6)
[2019-11-05] MEDS: PANTOPRAZOLE SODIUM 40 MG/VIAL IV SCH ×2 (09:12→16:59)
[2019-11-05] MEDS: LACTULOSE 20G/30ML UDC PO SCH (09:12)
[2019-11-05] MEDS: ZINC SULFATE 220 MG ( 50 ) CAPSULE PO SCH (09:12)
[2019-11-05] MEDS: LEVETIRACETAM 500MG/5ML CUP PO SCH ×2 (09:12→21:08)
[2019-11-05] MEDS: ASCORBIC ACID 500 MG TABLET PO SCH (09:12)
[2019-11-05] MEDS: FERROUS SULFATE 325MG TABLET PO SCH (09:12)
[2019-11-05] MEDS: AMLODIPINE 2.5MG TABLET PO SCH ×2 (09:13→21:09)
[2019-11-05] MEDS: RISPERIDONE 1MG TABLET PO SCH ×2 (09:16→21:08)
[2019-11-05] MEDS: METOPROLOL TARTRATE 5MG/5ML VIAL IV PRN (14:53)
[2019-11-05] MEDS: LORAZEPAM 0.5MG TABLET PO PRN (16:59)
[2019-11-06] VITALS (12 sets, daily range): BP systolic 62–183; BP diastolic 23–99
[2019-11-06] MEDS: METOPROLOL TARTRATE 5MG/5ML VIAL IV PRN (00:04)
[2019-11-06] MEDS: DIPHENHYDRAMINE 50MG/ML VIAL IV PRN (00:07)
[2019-11-06] MEDS: METOCLOPRAMIDE HCL 10MG/2ML VIAL IV SCH ×4 (00:52→17:31)
[2019-11-06] MEDS: LORAZEPAM 0.5MG TABLET PO PRN ×4 (01:13→21:24)
[2019-11-06] MEDS: CLONAZEPAM 0.5MG TABLET PO SCH ×2 (05:18→14:58)
[2019-11-06] MEDS: HYDRALAZINE HCL 50MG TABLET PO SCH (05:19)
[2019-11-06 06:03] LABS: BASOPHILS % 2.1 % (0.0-2.0); EOSINOPHILS % 2.1 % (0.0-5.0); HEMATOCRIT. 32.6 % (42.0-52.0); HEMOGLOBIN. 10.8 g/dL (14.0-18.0); LYMPHOCYTES % 12.5 % (20.0-50.0); MEAN CORPUSCULAR HEMOGLOBIN 30.6 pg (28.0-32.0); MEAN CORPUSCULAR VOLUME 92.1 fL (80.0-94.0); MEAN PLATELET VOLUME 9.3 fl (7.4-10.4); NEUTROPHILS % 78.3 % (40.0-76.0); PLATELET 627 x1000/uL (130-400); RED BLOOD CELL COUNT 3.54 mill/uL (4.7-6.1); RED CELL DISTRIBUTION WIDTH 15.7 % (11.6-14.6)
[2019-11-06] MEDS: AMLODIPINE 2.5MG TABLET PO SCH ×2 (08:46→21:22)
[2019-11-06] MEDS: RISPERIDONE 1MG TABLET PO SCH ×2 (08:46→21:21)
[2019-11-06] MEDS: LACTULOSE 20G/30ML UDC PO SCH (08:46)
[2019-11-06] MEDS: LEVETIRACETAM 500MG/5ML CUP PO SCH ×2 (08:46→21:20)
[2019-11-06] MEDS: FERROUS SULFATE 325MG TABLET PO SCH (08:46)
[2019-11-06] MEDS: ZINC SULFATE 220 MG ( 50 ) CAPSULE PO SCH (08:47)
[2019-11-06] MEDS: PANTOPRAZOLE SODIUM 40 MG/VIAL IV SCH ×2 (08:51→17:30)
[2019-11-06] MEDS: ASCORBIC ACID 500 MG TABLET PO SCH (08:51)
[2019-11-06] MEDS: DEXTROSE 5% WATER 1,000 ML IV SCH (12:06)
[2019-11-06] MEDS: HYDRALAZINE HCL 100MG TABLET PO SCH ×2 (16:38→21:22)
[2019-11-06 21:04] LABS: CLARITY URINE CLOUDY (CLEAR); COLOR URINE YELLOW (YELLOW); KETONES URINE NEGATIVE (NEGATIVE); LEUKOCYTE ESTERASE URINE NEGATIVE (NEGATIVE); NITRITE URINE POSITIVE (NEGATIVE); OCCULT BLOOD URINE NEGATIVE (NEGATIVE); PROTEIN URINE 1+ (NEGATIVE); SPECIFIC GRAVITY URINE 1.017 (1.005-1.030); UROBILINOGEN URINE 0.2 E.U./dL (0.2-1.0)
[2019-11-06] MEDS: CLONAZEPAM 0.5MG TABLET GT SCH (21:21)
[2019-11-07] VITALS (12 sets, daily range): BP systolic 126–161; BP diastolic 75–92
[2019-11-07] MEDS: METOCLOPRAMIDE HCL 10MG/2ML VIAL IV SCH ×5 (00:31→23:51)
[2019-11-07] MEDS: DEXTROSE 5% WATER 1,000 ML IV SCH (02:55)
[2019-11-07] MEDS: HYDRALAZINE HCL 100MG TABLET PO SCH ×3 (05:08→21:39)
[2019-11-07] MEDS: CLONAZEPAM 0.5MG TABLET GT SCH ×3 (05:09→21:40)
[2019-11-07] MEDS: LORAZEPAM 0.5MG TABLET PO PRN ×2 (05:09→08:19)
[2019-11-07 06:09] LABS: BASOPHILS % 1.9 % (0.0-2.0); EOSINOPHILS % 2.4 % (0.0-5.0); HEMATOCRIT. 32.6 % (42.0-52.0); HEMOGLOBIN. 10.6 g/dL (14.0-18.0); LYMPHOCYTES % 12.9 % (20.0-50.0); MEAN CORPUSCULAR HEMOGLOBIN 29.9 pg (28.0-32.0); MEAN CORPUSCULAR VOLUME 92.3 fL (80.0-94.0); MEAN PLATELET VOLUME 9.9 fl (7.4-10.4); MONOCYTES % 5.3 % (2.0-8.0); NEUTROPHILS % 77.5 % (40.0-76.0); PLATELET 564 x1000/uL (130-400); RED BLOOD CELL COUNT 3.53 mill/uL (4.7-6.1)
[2019-11-07] MEDS: FERROUS SULFATE 325MG TABLET PO SCH (08:19)
[2019-11-07] MEDS: LEVETIRACETAM 500MG/5ML CUP PO SCH ×2 (08:19→21:40)
[2019-11-07] MEDS: ZINC SULFATE 220 MG ( 50 ) CAPSULE PO SCH (08:19)
[2019-11-07] MEDS: ASCORBIC ACID 500 MG TABLET PO SCH (08:19)
[2019-11-07] MEDS: RISPERIDONE 1MG TABLET PO SCH ×2 (08:19→21:39)
[2019-11-07] MEDS: AMLODIPINE 2.5MG TABLET PO SCH (08:20)
[2019-11-07] MEDS: METOPROLOL TARTRATE 5MG/5ML VIAL IV PRN (11:10)
[2019-11-07] MEDS: CEFEPIME 2,000 MG in DEXT 5% WATER 100 ML IV SCH ×2 (13:35→21:39)
[2019-11-07] MEDS: METOPROLOL TARTRATE 50MG TABLET PO SCH (21:40)
[2019-11-08] VITALS (11 sets, daily range): BP systolic 113–130; BP diastolic 56–85
[2019-11-08] MEDS: HYDRALAZINE HCL 100MG TABLET PO SCH ×3 (05:16→23:12)
[2019-11-08] MEDS: METOCLOPRAMIDE HCL 10MG/2ML VIAL IV SCH ×4 (05:16→23:11)
[2019-11-08] MEDS: CLONAZEPAM 0.5MG TABLET GT SCH ×3 (05:16→23:12)
[2019-11-08] MEDS: DEXTROSE 5% WATER 1,000 ML IV SCH (05:16)
[2019-11-08 06:30] LABS: CHLORIDE 115 mEq/L (98-107)
[2019-11-08 06:33] LABS: BASOPHILS % 2.1 % (0.0-2.0); EOSINOPHILS % 4.9 % (0.0-5.0); HEMATOCRIT. 29.5 % (42.0-52.0); HEMOGLOBIN. 9.6 g/dL (14.0-18.0); LYMPHOCYTES % 14.7 % (20.0-50.0); MEAN CORPUSCULAR VOLUME 92.1 fL (80.0-94.0); MEAN PLATELET VOLUME 9.7 fl (7.4-10.4); MONOCYTES % 5.5 % (2.0-8.0); NEUTROPHILS % 72.8 % (40.0-76.0); PLATELET 471 x1000/uL (130-400); RED CELL DISTRIBUTION WIDTH 15.7 % (11.6-14.6)
[2019-11-08] MEDS: CEFEPIME 2,000 MG in DEXT 5% WATER 100 ML IV SCH ×2 (08:52→21:53)
[2019-11-08] MEDS: ZINC SULFATE 220 MG ( 50 ) CAPSULE PO SCH (08:52)
[2019-11-08] MEDS: ASCORBIC ACID 500 MG TABLET PO SCH (08:52)
[2019-11-08] MEDS: FERROUS SULFATE 325MG TABLET PO SCH (08:52)
[2019-11-08] MEDS: RISPERIDONE 1MG TABLET PO SCH ×2 (08:52→21:54)
[2019-11-08] MEDS: LEVETIRACETAM 500MG/5ML CUP PO SCH ×2 (08:52→21:53)
[2019-11-08] MEDS: METOPROLOL TARTRATE 50MG TABLET PO SCH ×2 (08:59→21:54)
[2019-11-08] MEDS ORDERED: POTASSIUM CHLORIDE 20MEQ/PACKET PO NR (09:30)
[2019-11-08] MEDS: RACEPINEPHRINE 2.25% 0.5ML NEB VIAL HHN PRN ×2 (09:40→16:43)
[2019-11-09] VITALS (12 sets, daily range): BP systolic 107–133; BP diastolic 55–78
[2019-11-09] MEDS: CLONAZEPAM 0.5MG TABLET GT SCH ×3 (06:52→21:05)
[2019-11-09] MEDS: METOCLOPRAMIDE HCL 10MG/2ML VIAL IV SCH ×3 (06:52→18:20)
[2019-11-09] MEDS: HYDRALAZINE HCL 100MG TABLET PO SCH ×3 (06:52→21:05)
[2019-11-09 07:16] LABS: BASOPHILS % 1.4 % (0.0-2.0); EOSINOPHILS % 4.7 % (0.0-5.0); HEMATOCRIT. 29.4 % (42.0-52.0); HEMOGLOBIN. 9.5 g/dL (14.0-18.0); LYMPHOCYTES % 18.1 % (20.0-50.0); MEAN CORPUSCULAR HEMOGLOBIN 29.7 pg (28.0-32.0); MEAN CORPUSCULAR VOLUME 91.6 fL (80.0-94.0); MEAN PLATELET VOLUME 10.1 fl (7.4-10.4); MONOCYTES % 6.5 % (2.0-8.0); NEUTROPHILS % 69.3 % (40.0-76.0); PLATELET 442 x1000/uL (130-400); RED CELL DISTRIBUTION WIDTH 14.9 % (11.6-14.6)
[2019-11-09 07:30] LABS: CHLORIDE 111 mEq/L (98-107)
[2019-11-09 07:36] LABS: PHOSPHORUS 3.1 mg/dL (2.5-4.9)
[2019-11-09] MEDS: CEFEPIME 2,000 MG in DEXT 5% WATER 100 ML IV SCH ×2 (09:33→21:06)
[2019-11-09] MEDS: LEVETIRACETAM 500MG/5ML CUP PO SCH ×2 (09:34→21:06)
[2019-11-09] MEDS: RISPERIDONE 1MG TABLET PO SCH ×2 (09:34→21:05)
[2019-11-09] MEDS: METOPROLOL TARTRATE 50MG TABLET PO SCH ×2 (09:34→21:05)
[2019-11-09] MEDS: ASCORBIC ACID 500 MG TABLET PO SCH (09:34)
[2019-11-09] MEDS: ZINC SULFATE 220 MG ( 50 ) CAPSULE PO SCH (09:34)
[2019-11-09] MEDS: FERROUS SULFATE 325MG TABLET PO SCH (09:34)
[2019-11-09] MEDS ORDERED: MAGNESIUM 2 G PREMIX 50 ML IV SCH (13:00)
[2019-11-10] VITALS (12 sets, daily range): BP systolic 95–153; BP diastolic 57–92
[2019-11-10] MEDS: METOCLOPRAMIDE HCL 10MG/2ML VIAL IV SCH ×5 (00:29→23:23)
[2019-11-10] MEDS: HYDRALAZINE HCL 100MG TABLET PO SCH ×3 (05:08→21:04)
[2019-11-10] MEDS: CLONAZEPAM 0.5MG TABLET GT SCH ×3 (05:08→21:04)
[2019-11-10 06:21] LABS: BASOPHILS % 2.1 % (0.0-2.0); EOSINOPHILS % 4.9 % (0.0-5.0); LYMPHOCYTES % 24.2 % (20.0-50.0); MEAN CORPUSCULAR HEMOGLOBIN 30.3 pg (28.0-32.0); MEAN CORPUSCULAR VOLUME 90.6 fL (80.0-94.0); MEAN PLATELET VOLUME 10.3 fl (7.4-10.4); MONOCYTES % 5.9 % (2.0-8.0); NEUTROPHILS % 62.9 % (40.0-76.0); PLATELET 423 x1000/uL (130-400); RED BLOOD CELL COUNT 3.31 mill/uL (4.7-6.1); RED CELL DISTRIBUTION WIDTH 14.6 % (11.6-14.6)
[2019-11-10 06:35] LABS: CHLORIDE 111 mEq/L (98-107)
[2019-11-10 06:44] LABS: PHOSPHORUS 3.2 mg/dL (2.5-4.9)
[2019-11-10] MEDS: LEVETIRACETAM 500MG/5ML CUP PO SCH ×2 (08:33→21:04)
[2019-11-10] MEDS: FERROUS SULFATE 325MG TABLET PO SCH (08:34)
[2019-11-10] MEDS: ASCORBIC ACID 500 MG TABLET PO SCH (08:34)
[2019-11-10] MEDS: RISPERIDONE 1MG TABLET PO SCH ×2 (08:34→21:04)
[2019-11-10] MEDS: ZINC SULFATE 220 MG ( 50 ) CAPSULE PO SCH (08:34)
[2019-11-10] MEDS: CEFEPIME 2,000 MG in DEXT 5% WATER 100 ML IV SCH ×2 (08:35→21:04)
[2019-11-10] MEDS: METOPROLOL TARTRATE 50MG TABLET PO SCH ×2 (08:38→21:05)
[2019-11-10] MEDS ORDERED: KEPPSOL PO (12:07)
[2019-11-10] MEDS ORDERED: CEFE2FRO IV (12:07)
[2019-11-10] MEDS ORDERED: METO-539 PO (12:07)
[2019-11-10] MEDS ORDERED: ASCO500T20 PO (12:07)
[2019-11-10] MEDS ORDERED: ZINC220C2 PO (12:07)
[2019-11-10] MEDS ORDERED: RISP1 PO (12:07)
[2019-11-10] MEDS ORDERED: CLON0.5T4 GT (12:07)
[2019-11-10] MEDS ORDERED: FERR325T23 PO (12:07)
[2019-11-10] MEDS ORDERED: HYDR100T26 PO (12:07)
[2019-11-11] VITALS (12 sets, daily range): BP systolic 95–129; BP diastolic 27–83
[2019-11-11] MEDS: CLONAZEPAM 0.5MG TABLET GT SCH ×3 (05:34→21:39)
[2019-11-11] MEDS: METOCLOPRAMIDE HCL 10MG/2ML VIAL IV SCH ×3 (05:34→18:19)
[2019-11-11] MEDS: HYDRALAZINE HCL 100MG TABLET PO SCH ×3 (05:35→21:38)
[2019-11-11] MEDS ORDERED: METOPROLOL TARTRATE 5MG/5ML VIAL IV PRN (09:00)
[2019-11-11] MEDS: CEFEPIME 2,000 MG in DEXT 5% WATER 100 ML IV SCH ×2 (09:06→21:38)
[2019-11-11] MEDS: LEVETIRACETAM 500MG/5ML CUP PO SCH ×2 (09:06→21:38)
[2019-11-11] MEDS: FERROUS SULFATE 325MG TABLET PO SCH (09:07)
[2019-11-11] MEDS: ZINC SULFATE 220 MG ( 50 ) CAPSULE PO SCH (09:07)
[2019-11-11] MEDS: ASCORBIC ACID 500 MG TABLET PO SCH (09:07)
[2019-11-11] MEDS: RISPERIDONE 1MG TABLET PO SCH ×2 (09:08→21:38)
[2019-11-11] MEDS: METOPROLOL TARTRATE 50MG TABLET PO SCH ×2 (09:13→21:39)
[2019-11-12] VITALS (12 sets, daily range): BP systolic 106–129; BP diastolic 55–73
[2019-11-12] MEDS: METOCLOPRAMIDE HCL 10MG/2ML VIAL IV SCH ×5 (00:01→23:21)
[2019-11-12] MEDS: HYDRALAZINE HCL 100MG TABLET PO SCH ×3 (06:00→23:22)
[2019-11-12 06:12] LABS: BASOPHILS % 2.2 % (0.0-2.0); EOSINOPHILS % 4.9 % (0.0-5.0); HEMATOCRIT. 31.8 % (42.0-52.0); HEMOGLOBIN. 10.4 g/dL (14.0-18.0); LYMPHOCYTES % 28.5 % (20.0-50.0); MEAN CORPUSCULAR HEMOGLOBIN 29.7 pg (28.0-32.0); MEAN CORPUSCULAR VOLUME 90.9 fL (80.0-94.0); MEAN PLATELET VOLUME 10.5 fl (7.4-10.4); MONOCYTES % 6.4 % (2.0-8.0); PLATELET 374 x1000/uL (130-400)
[2019-11-12 06:51] LABS: CHLORIDE 108 mEq/L (98-107)
[2019-11-12] MEDS: METOPROLOL TARTRATE 50MG TABLET PO SCH ×2 (09:00→20:33)
[2019-11-12] MEDS: ZINC SULFATE 220 MG ( 50 ) CAPSULE PO SCH (09:12)
[2019-11-12] MEDS: RISPERIDONE 1MG TABLET PO SCH ×2 (09:12→20:30)
[2019-11-12] MEDS: LEVETIRACETAM 500MG/5ML CUP PO SCH ×2 (09:12→20:29)
[2019-11-12] MEDS: ASCORBIC ACID 500 MG TABLET PO SCH (09:18)
[2019-11-12] MEDS: FERROUS SULFATE 325MG TABLET PO SCH (09:19)
[2019-11-12] MEDS: CEFEPIME 2,000 MG in DEXT 5% WATER 100 ML IV SCH ×2 (09:24→20:34)
[2019-11-12] MEDS ORDERED: GUAIFENESIN 200MG/10ML SUGAR FREE UDC PO PRN (11:00)
[2019-11-13] VITALS (12 sets, daily range): BP systolic 94–145; BP diastolic 44–69
[2019-11-13 06:07] LABS: BASOPHILS % 2.5 % (0.0-2.0); EOSINOPHILS % 4.7 % (0.0-5.0); HEMATOCRIT. 31.7 % (42.0-52.0); HEMOGLOBIN. 10.5 g/dL (14.0-18.0); LYMPHOCYTES % 27.6 % (20.0-50.0); MEAN CORPUSCULAR VOLUME 90.5 fL (80.0-94.0); MEAN PLATELET VOLUME 10.9 fl (7.4-10.4); MONOCYTES % 6.6 % (2.0-8.0); NEUTROPHILS % 58.6 % (40.0-76.0); PLATELET 345 x1000/uL (130-400); RED BLOOD CELL COUNT 3.51 mill/uL (4.7-6.1); RED CELL DISTRIBUTION WIDTH 14.9 % (11.6-14.6)
[2019-11-13] MEDS: METOCLOPRAMIDE HCL 10MG/2ML VIAL IV SCH ×3 (06:16→17:07)
[2019-11-13] MEDS: HYDRALAZINE HCL 100MG TABLET PO SCH ×2 (06:17→12:56)
[2019-11-13 08:04] LABS: CHLORIDE 103 mEq/L (98-107)
[2019-11-13] MEDS: FERROUS SULFATE 325MG TABLET PO SCH (08:49)
[2019-11-13] MEDS: ASCORBIC ACID 500 MG TABLET PO SCH (08:49)
[2019-11-13] MEDS: LEVETIRACETAM 500MG/5ML CUP PO SCH ×2 (08:49→21:06)
[2019-11-13] MEDS: ZINC SULFATE 220 MG ( 50 ) CAPSULE PO SCH (08:49)
[2019-11-13] MEDS: RISPERIDONE 1MG TABLET PO SCH ×2 (08:50→21:06)
[2019-11-13] MEDS: METOPROLOL TARTRATE 50MG TABLET PO SCH ×2 (08:50→21:08)
[2019-11-14] VITALS (11 sets, daily range): BP systolic 91–123; BP diastolic 27–70
[2019-11-14] MEDS: HYDRALAZINE HCL 100MG TABLET PO SCH ×2 (00:15→06:04)
[2019-11-14] MEDS: METOCLOPRAMIDE HCL 10MG/2ML VIAL IV SCH ×4 (00:15→18:11)
[2019-11-14 06:27] LABS: BASOPHILS % 2.4 % (0.0-2.0); EOSINOPHILS % 5.5 % (0.0-5.0); HEMATOCRIT. 28.8 % (42.0-52.0); HEMOGLOBIN. 9.8 g/dL (14.0-18.0); MEAN CORPUSCULAR HEMOGLOBIN 30.6 pg (28.0-32.0); MEAN CORPUSCULAR VOLUME 90.1 fL (80.0-94.0); MEAN PLATELET VOLUME 10.7 fl (7.4-10.4); NEUTROPHILS % 55.1 % (40.0-76.0); PLATELET 331 x1000/uL (130-400); RED BLOOD CELL COUNT 3.19 mill/uL (4.7-6.1); RED CELL DISTRIBUTION WIDTH 14.8 % (11.6-14.6)
[2019-11-14 07:39] LABS: CHLORIDE 102 mEq/L (98-107)
[2019-11-14] MEDS: METOPROLOL TARTRATE 50MG TABLET PO SCH (09:00)
[2019-11-14] MEDS: LEVETIRACETAM 500MG/5ML CUP PO SCH ×2 (09:10→21:27)
[2019-11-14] MEDS: RISPERIDONE 1MG TABLET PO SCH ×2 (09:11→21:28)
[2019-11-14] MEDS: FERROUS SULFATE 325MG TABLET PO SCH (09:11)
[2019-11-14] MEDS: ASCORBIC ACID 500 MG TABLET PO SCH (09:11)
[2019-11-14] MEDS: ZINC SULFATE 220 MG ( 50 ) CAPSULE PO SCH (09:11)
[2019-11-14] MEDS: HYDRALAZINE HCL 50MG TABLET PO SCH ×2 (13:20→21:28)
[2019-11-14] MEDS ORDERED: METOPROLOL TARTRATE 100MG TABLET PO SCH (16:25)
[2019-11-14] MEDS: METOPROLOL TARTRATE 100MG TABLET PO SCH (21:28)
[2019-11-15] VITALS: BP 98/53
[2019-11-15] MEDS: METOCLOPRAMIDE HCL 10MG/2ML VIAL IV SCH ×3 (00:34→11:27)
[2019-11-15 04:00] VITALS: BP 96/49
[2019-11-15] MEDS: HYDRALAZINE HCL 50MG TABLET PO SCH (06:00)
[2019-11-15 07:21] LABS: BASOPHILS % 2.6 % (0.0-2.0); HEMATOCRIT. 28.6 % (42.0-52.0); HEMOGLOBIN. 9.6 g/dL (14.0-18.0); LYMPHOCYTES % 35.1 % (20.0-50.0); MEAN CORPUSCULAR HEMOGLOBIN 30.4 pg (28.0-32.0); MEAN CORPUSCULAR VOLUME 90.4 fL (80.0-94.0); MONOCYTES % 8.5 % (2.0-8.0); NEUTROPHILS % 48.8 % (40.0-76.0); PLATELET 318 x1000/uL (130-400); RED BLOOD CELL COUNT 3.16 mill/uL (4.7-6.1); RED CELL DISTRIBUTION WIDTH 14.6 % (11.6-14.6)
[2019-11-15 08:00] VITALS: BP 93/52
[2019-11-15] MEDS: RISPERIDONE 1MG TABLET PO SCH ×2 (08:28→20:58)
[2019-11-15] MEDS: ZINC SULFATE 220 MG ( 50 ) CAPSULE PO SCH (08:28)
[2019-11-15] MEDS: ASCORBIC ACID 500 MG TABLET PO SCH (08:28)
[2019-11-15] MEDS: LEVETIRACETAM 500MG/5ML CUP PO SCH ×2 (08:28→20:57)
[2019-11-15] MEDS: FERROUS SULFATE 325MG TABLET PO SCH (08:28)
[2019-11-15] MEDS: METOPROLOL TARTRATE 100MG TABLET PO SCH ×2 (08:29→20:58)
[2019-11-15 08:59] LABS: CHLORIDE 102 mEq/L (98-107)
[2019-11-15 12:00] VITALS: BP 107/59
[2019-11-15 16:00] VITALS: BP 118/62
[2019-11-15 20:00] VITALS: BP 99/47
[2019-11-16] VITALS: BP 112/65
[2019-11-16 04:00] VITALS: BP 114/55
[2019-11-16 08:00] VITALS: BP 101/55
[2019-11-16] MEDS: FERROUS SULFATE 325MG TABLET PO SCH (09:08)
[2019-11-16] MEDS: ASCORBIC ACID 500 MG TABLET PO SCH (09:08)
[2019-11-16] MEDS: LEVETIRACETAM 500MG/5ML CUP PO SCH ×2 (09:08→21:26)
[2019-11-16] MEDS: RISPERIDONE 1MG TABLET PO SCH ×2 (09:08→21:26)
[2019-11-16] MEDS: METOPROLOL TARTRATE 100MG TABLET PO SCH ×2 (09:09→21:00)
[2019-11-16] MEDS: ZINC SULFATE 220 MG ( 50 ) CAPSULE PO SCH (09:12)
[2019-11-16 12:00] VITALS: BP 110/55
[2019-11-16 16:00] VITALS: BP 102/60
[2019-11-16 20:00] VITALS: BP 105/42
[2019-11-17] VITALS: BP 110/59
[2019-11-17 04:00] VITALS: BP 113/63
[2019-11-17 08:00] VITALS: BP 122/68
[2019-11-17] MEDS: LEVETIRACETAM 500MG/5ML CUP PO SCH ×2 (09:33→22:24)
[2019-11-17] MEDS: FERROUS SULFATE 325MG TABLET PO SCH (09:33)
[2019-11-17] MEDS: RISPERIDONE 1MG TABLET PO SCH ×2 (09:33→22:18)
[2019-11-17] MEDS: ZINC SULFATE 220 MG ( 50 ) CAPSULE PO SCH (09:33)
[2019-11-17] MEDS: ASCORBIC ACID 500 MG TABLET PO SCH (09:33)
[2019-11-17] MEDS: METOPROLOL TARTRATE 100MG TABLET PO SCH ×2 (09:34→21:00)
[2019-11-17 12:00] VITALS: BP 98/53
[2019-11-17 15:56] VITALS: BP 101/70
[2019-11-17 20:00] VITALS: BP 98/52
[2019-11-18] VITALS: BP 102/58
[2019-11-18 04:00] VITALS: BP 114/58
[2019-11-18 08:00] VITALS: BP 91/58
[2019-11-18] MEDS: ZINC SULFATE 220 MG ( 50 ) CAPSULE PO SCH (08:57)
[2019-11-18] MEDS: ASCORBIC ACID 500 MG TABLET PO SCH (08:57)
[2019-11-18] MEDS: FERROUS SULFATE 325MG TABLET PO SCH (08:57)
[2019-11-18] MEDS: RISPERIDONE 1MG TABLET PO SCH ×2 (08:57→20:18)
[2019-11-18] MEDS: METOPROLOL TARTRATE 100MG TABLET PO SCH ×2 (08:58→20:21)
[2019-11-18] MEDS: LEVETIRACETAM 500MG/5ML CUP PO SCH ×2 (08:58→20:20)
[2019-11-18 09:11] LABS: INR 1.1; PROTHROMBIN TIME 11.1 sec (9.6-11.0)
[2019-11-18 09:14] LABS: BASOPHILS % 2.4 % (0.0-2.0); EOSINOPHILS % 8.2 % (0.0-5.0); HEMATOCRIT. 28.9 % (42.0-52.0); HEMOGLOBIN. 9.2 g/dL (14.0-18.0); LYMPHOCYTES % 42.2 % (20.0-50.0); MEAN PLATELET VOLUME 10.6 fl (7.4-10.4); NEUTROPHILS % 36.2 % (40.0-76.0); PLATELET 285 x1000/uL (130-400); RED BLOOD CELL COUNT 3.08 mill/uL (4.7-6.1)
[2019-11-18 09:17] LABS: CHLORIDE 106 mEq/L (98-107)
[2019-11-18 09:25] LABS: PHOSPHORUS 3.6 mg/dL (2.5-4.9)
[2019-11-18 12:00] VITALS: BP 91/53
[2019-11-18] MEDS ORDERED: MAGNESIUM 4 G PREMIX 100 ML IV SCH (12:00)
[2019-11-18 16:00] VITALS: BP 94/54
[2019-11-18 20:00] VITALS: BP 107/59
[2019-11-19] VITALS: BP 106/71
[2019-11-19 04:00] VITALS: BP 110/65
[2019-11-19 08:00] VITALS: BP 95/56
[2019-11-19] MEDS: FERROUS SULFATE 325MG TABLET PO SCH (08:11)
[2019-11-19] MEDS: LEVETIRACETAM 500MG/5ML CUP PO SCH ×2 (08:11→20:26)
[2019-11-19] MEDS: RISPERIDONE 1MG TABLET PO SCH ×2 (08:11→20:26)
[2019-11-19] MEDS: METOPROLOL TARTRATE 100MG TABLET PO SCH ×2 (08:12→20:26)
[2019-11-19 12:00] VITALS: BP 99/63
[2019-11-19 16:00] VITALS: BP 95/59
[2019-11-19 20:00] VITALS: BP 105/60
[2019-11-20] VITALS: BP 110/65
[2019-11-20 04:00] VITALS: BP 116/67
[2019-11-20 08:00] VITALS: BP 98/55
[2019-11-20] MEDS: METOPROLOL TARTRATE 100MG TABLET PO SCH ×2 (08:46→21:00)
[2019-11-20] MEDS: FERROUS SULFATE 325MG TABLET PO SCH (08:47)
[2019-11-20] MEDS: RISPERIDONE 1MG TABLET PO SCH ×2 (08:47→21:14)
[2019-11-20] MEDS: LEVETIRACETAM 500MG/5ML CUP PO SCH ×2 (08:49→21:24)
[2019-11-20 12:00] VITALS: BP 99/52
[2019-11-20 16:00] VITALS: BP 97/57
[2019-11-20 20:00] VITALS: BP 95/55
[2019-11-21] VITALS: BP 97/52
[2019-11-21 04:00] VITALS: BP 96/55
[2019-11-21 08:00] VITALS: BP 97/60
[2019-11-21] MEDS: METOPROLOL TARTRATE 100MG TABLET PO SCH (09:00)
[2019-11-21] MEDS: RISPERIDONE 1MG TABLET PO SCH (09:15)
[2019-11-21] MEDS: FERROUS SULFATE 325MG TABLET PO SCH (09:15)
[2019-11-21] MEDS: LEVETIRACETAM 500MG/5ML CUP PO SCH (09:15)
[2019-11-21 12:00] VITALS: BP 105/67
[2019-11-21] MEDS: MAGNESIUM OXIDE 400MG TABLET PO SCH (13:51)
[2019-11-21 16:00] VITALS: BP 108/82
[2019-11-21 20:00] VITALS: BP 85/40
[2019-11-22] VITALS: BP 64/31
[2019-11-22] MEDS: LEVETIRACETAM 500MG/5ML CUP PO SCH ×3 (01:25→20:58)
[2019-11-22 04:00] VITALS: BP 100/65
[2019-11-22 08:00] VITALS: BP 97/59
[2019-11-22] MEDS: METOPROLOL TARTRATE 100MG TABLET PO SCH (08:56)
[2019-11-22] MEDS: FERROUS SULFATE 325MG TABLET PO SCH (08:57)
[2019-11-22] MEDS: MAGNESIUM OXIDE 400MG TABLET PO SCH (08:57)
[2019-11-22 09:54] LABS: BASOPHILS % 0.8 % (0.0-2.0); EOSINOPHILS % 6.9 % (0.0-5.0); HEMOGLOBIN. 9.7 g/dL (14.0-18.0); LYMPHOCYTES % 39.7 % (20.0-50.0); MEAN CORPUSCULAR HEMOGLOBIN 30.1 pg (28.0-32.0); MEAN CORPUSCULAR VOLUME 89.7 fL (80.0-94.0); MEAN PLATELET VOLUME 8.6 fl (7.4-10.4); MONOCYTES % 7.7 % (2.0-8.0); NEUTROPHILS % 44.9 % (40.0-76.0); PLATELET 377 x1000/uL (130-400); RED BLOOD CELL COUNT 3.23 mill/uL (4.7-6.1); RED CELL DISTRIBUTION WIDTH 14.7 % (11.6-14.6)
[2019-11-22 10:15] LABS: CHLORIDE 103 mEq/L (98-107)
[2019-11-22] MEDS ORDERED: METOPROLOL TARTRATE 5MG/5ML VIAL IV PRN (10:45)
[2019-11-22] MEDS ORDERED: METOPROLOL TARTRATE 25MG TABLET PO PRN (11:15)
[2019-11-22 12:00] VITALS: BP 101/63
[2019-11-22 16:00] VITALS: BP 91/52
[2019-11-22 20:00] VITALS: BP 100/54
[2019-11-23] VITALS: BP 100/54
[2019-11-23 04:00] VITALS: BP 100/54
[2019-11-23 08:00] VITALS: BP 94/58
[2019-11-23] MEDS: FERROUS SULFATE 325MG TABLET PO SCH (08:40)
[2019-11-23] MEDS: MAGNESIUM OXIDE 400MG TABLET PO SCH (08:40)
[2019-11-23] MEDS: LEVETIRACETAM 500MG/5ML CUP PO SCH ×2 (08:40→21:42)
[2019-11-23 12:00] VITALS: BP 93/63
[2019-11-23 16:00] VITALS: BP 94/53
[2019-11-23 20:00] VITALS: BP 100/57
[2019-11-24] VITALS: BP 106/68
[2019-11-24 04:00] VITALS: BP 100/55
[2019-11-24 08:00] VITALS: BP 91/56
[2019-11-24] MEDS: FERROUS SULFATE 325MG TABLET PO SCH (08:37)
[2019-11-24] MEDS: LEVETIRACETAM 500MG/5ML CUP PO SCH (08:37)
[2019-11-24] MEDS: MAGNESIUM OXIDE 400MG TABLET PO SCH (08:37)
[2019-11-24 12:00] VITALS: BP 91/57
[2019-11-24 15:54] VITALS: BP 91/57
[2019-11-24 16:00] VITALS: BP 93/59
== END 2019-11-24 17:25 | disposition home or self-care (01) | DRG 4 ==
LOC: ER 02:20 → MICUSO 04:20 → ENRESERV 07:05 → CVICU 10-12 17:30 → 5EST 10-19 12:45 → 6EST 11-17 16:25
PROVIDERS: ADMIT Internal Medicine; ATTEND Internal Medicine
PROC: 5A1955Z Respiratory Ventilation, Greater than 96 Consecutive Hours (ICD-10-PCS; 2019-10-09)
PROC: 0BH17EZ Insertion of Endotracheal Airway into Trachea, Via Natural or Artificial Opening (ICD-10-PCS; 2019-10-09)
PROC: 009U3ZX Drainage of Spinal Canal, Percutaneous Approach, Diagnostic (ICD-10-PCS; 2019-10-09)
PROC: 02HV33Z Insertion of Infusion Device into Superior Vena Cava, Percutaneous Approach (ICD-10-PCS; 2019-10-10)
PROC: B548ZZA Ultrasonography of Superior Vena Cava, Guidance (ICD-10-PCS; 2019-10-10)
PROC: 02HV33Z Insertion of Infusion Device into Superior Vena Cava, Percutaneous Approach (ICD-10-PCS; 2019-10-10)
PROC: B548ZZA Ultrasonography of Superior Vena Cava, Guidance (ICD-10-PCS; 2019-10-10)
PROC: 0B110F4 Bypass Trachea to Cutaneous with Tracheostomy Device, Open Approach (ICD-10-PCS; principal; 2019-10-17)
PROC: 0GTJ0ZZ Resection of Thyroid Gland Isthmus, Open Approach (ICD-10-PCS; 2019-10-17)
PROC: 0DH63UZ Insertion of Feeding Device into Stomach, Percutaneous Approach (ICD-10-PCS; 2019-10-19)
PROC: 5A1D70Z Performance of Urinary Filtration, Intermittent, Less than 6 Hours Per Day (ICD-10-PCS; 2019-10-19)
PROC: 5A1D70Z Performance of Urinary Filtration, Intermittent, Less than 6 Hours Per Day (ICD-10-PCS; 2019-10-21)
PROC: 5A1D70Z Performance of Urinary Filtration, Intermittent, Less than 6 Hours Per Day (ICD-10-PCS; 2019-10-23)
PROC: 5A1D70Z Performance of Urinary Filtration, Intermittent, Less than 6 Hours Per Day (ICD-10-PCS; 2019-10-26)
PROC: 5A1D70Z Performance of Urinary Filtration, Intermittent, Less than 6 Hours Per Day (ICD-10-PCS; 2019-10-28)
PROC: 30233N1 Transfusion of Nonautologous Red Blood Cells into Peripheral Vein, Percutaneous Approach (ICD-10-PCS; 2019-10-29)
PROC: 5A1D70Z Performance of Urinary Filtration, Intermittent, Less than 6 Hours Per Day (ICD-10-PCS; 2019-10-31)
PROC: 5A1D70Z Performance of Urinary Filtration, Intermittent, Less than 6 Hours Per Day (ICD-10-PCS; 2019-11-01)
DX: A41.9 Sepsis, unspecified organism (principal); E87.0 Hyperosmolality and hypernatremia; E87.5 Hyperkalemia; E87.2 Acidosis; G40.901 Epilepsy, unspecified, not intractable, with status epilepticus; I21.4 Non-ST elevation (NSTEMI) myocardial infarction; I63.9 Cerebral infarction, unspecified; J69.0 Pneumonitis due to inhalation of food and vomit; K72.00 Acute and subacute hepatic failure without coma; M62.82 Rhabdomyolysis; N17.0 Acute kidney failure with tubular necrosis; N39.0 Urinary tract infection, site not specified; R65.21 Severe sepsis with septic shock; Z20.828 Contact with and (suspected) exposure to other viral communicable diseases; D63.8 Anemia in other chronic diseases classified elsewhere; F10.239 Alcohol dependence with withdrawal, unspecified; F17.210 Nicotine dependence, cigarettes, uncomplicated; I10 Essential (primary) hypertension; Y90.1 Blood alcohol level of 20-39 mg/100 ml; J96.01 Acute respiratory failure with hypoxia; J98.11 Atelectasis; K74.60 Unspecified cirrhosis of liver; R13.12 Dysphagia, oropharyngeal phase; Z66 Do not resuscitate; R47.02 Dysphasia; J91.8 Pleural effusion in other conditions classified elsewhere; S90.821A Blister (nonthermal), right foot, initial encounter; S90.822A Blister (nonthermal), left foot, initial encounter; F15.10 Other stimulant abuse, uncomplicated; E43 Unspecified severe protein-calorie malnutrition; D68.9 Coagulation defect, unspecified; R74.0 Nonspecific elevation of levels of transaminase and lactic acid dehydrogenase [LDH]; L89.892 Pressure ulcer of other site, stage 2; K92.1 Melena; D69.6 Thrombocytopenia, unspecified; X58.XXXA Exposure to other specified factors, initial encounter; Z78.1 Physical restraint status; I25.2 Old myocardial infarction; Z93.1 Gastrostomy status; Z99.11 Dependence on respirator [ventilator] status; Z99.2 Dependence on renal dialysis; Y93.89 Activity, other specified; Y92.89 Other specified places as the place of occurrence of the external cause; Y99.8 Other external cause status; Z56.0 Unemployment, unspecified; J32.2 Chronic ethmoidal sinusitis
CPT/HCPCS: 36415; 36600; 70551; 71045; 71250; 74018; 74176; 76705; 76937; 78278; 80048; 80053; 80061; 80076; 80202; 80305; 80307; 80320; 80329; 81003; 82040; 82140; 82247; 82248; 82270; 82375; 82550; 82553; 82607; 82728; 82746; 82805; 82945; 82962; 83540; 83550; 83605; 83735; 83880; 84100; 84134; 84145; 84157; 84443; 84450; 84460; 84484; 85014; 85018; 85025; 85027; 85384; 86022; 86592; 86658; 86705; 86709; 86777; 86778; 86788; 86789; 86803; 86850; 86900; 86920; 87015; 87045; 87070; 87077; 87107; 87186; 87340; 87389; 87427; 87449; 87493; 87529; 87635; 87899; 89055; 92610; 93005; 93306; 93970; 94002; 94003; 94640; 97110; 97112; 97116; 97162; 97166; 97530; 97535; 99291; A9560; C1752; C1887; C9113; J0133; J0690; J0692; J0696; J1170; J1200; J1630; J1644; J1650; J1885; J1953; J2060; J2248; J2250; J2270; J2370; J2405; J2543; J2704; J2765; J3010; J3370; J3411; J3430; J3475; J3480; J3490; J7030; J7050; J7060; J7070; P9016; P9047; G0480